=== PATIENT | male | born 1965 | race Caucasian/White ===

== ENCOUNTER 2023-04-04 14:10 | Outpatient (CLI) | payer MEDICAID, SELFPAY ==
--- NOTE | 2023-04-04 14:26 | XR_ITS ---
FINAL REPORT CLINICAL HISTORY: left knee pain COMPARISON: None FINDINGS: Three views of the left knee reveal no evidence of fracture or dislocation. There is severe degenerative change, and severe joint space narrowing. There is angulation of the knee, with multiple loose bodies measuring up to 29 mm present in the suprapatellar bursa. A moderate size joint effusion is present. No localized soft tissue abnormality is seen. IMPRESSION: Severe degenerative change and severe joint space narrowing of the left knee as described. Reviewed, Interpreted and Dictated by Clinton Oglesby III, MD Transcribed by Karen Can Authenticated and . [facility]
== END 2023-04-04 23:59 ==
LOC: RAD 14:18
PROVIDERS: Visit Provider Orthopaedic Surgery
DX: M25.562 Pain in left knee (principal)
CPT/HCPCS: 73562

== ENCOUNTER 2023-04-16 17:20 | Emergency (ER) | payer MEDICAID, SELFPAY ==
[2023-04-16 17:21] VITALS: BP 161/100; PULSE 75; RESP 18; TEMP 37; O2SAT 98; BMI 30.1
--- NOTE | 2023-04-16 17:39 | PC.NURSE ---
DR CALVERT AT BEDSIDE
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
--- NOTE | 2023-04-16 17:48 | PC.NURSE ---
SPOKE WITH DAUGHTER GEE, INFORMED THAT FATHER IS BEING EVALUATED IN ED. UPDATED ON PT'S CONDITION AND POC. DAUGHTER STATES SHE IS 18 Y/O, LIVES IN [place], IS A STUDENT AND CANNOT COME PICK HER FATHER UP HE SAID. STATES SHE SPOKE WITH DEMETRIS (WHEEL ALIGNER) OF [facility] AND MR MCGINNIS CAN COME BACK. DAUGHTER REPORTS PT HAS TBI.
--- NOTE | 2023-04-16 17:56 | PC.NURSE ---
CALLED [facility] TWICE FOR PT TO BE PICKED UP, NO ANSWER
--- NOTE | 2023-04-16 17:58 | PC.NURSE ---
called [facility] for pt transport, they advised they would come get him.
[2023-04-16 18:38] VITALS: BP 158/90; PULSE 80; RESP 18; TEMP 37; O2SAT 99
== END 2023-04-16 18:39 | disposition home or self-care (01) ==
PROVIDERS: Emergency Provider Emergency Medicine
DX: R41.82 Altered mental status, unspecified (principal); F10.929 Alcohol use, unspecified with intoxication, unspecified; Z87.820 Personal history of traumatic brain injury
CPT/HCPCS: 99284

== ENCOUNTER 2023-06-23 19:26 | Emergency (ER) | payer MEDICAID, SELFPAY ==
[2023-06-23 19:26] VITALS: BP 159/83; PULSE 89; RESP 20; TEMP 36.6; O2SAT 100; BMI 30.4
[2023-06-23 19:30] VITALS: BP 152/85; PULSE 88; O2SAT 98
--- NOTE | 2023-06-23 19:43 | ECG_ITS ---
APPROVED REPORT Exam: Resting ECG HR:81 bpm ECG Measurements Heart Rate 81 AXES TN 191 P 67 QRSd 101 QRS 56 QT 392 T 69 QTc 430 Conclusion SINUS RHYTHM NORMAL ECG UNCONFIRMED REPORT Electronically signed by : NIKA ZULUAGA, 06/24/2023 06:30:35
[2023-06-23 20:00] VITALS: BP 150/92; PULSE 92; O2SAT 98
--- NOTE | 2023-06-23 20:24 | XR_ITS ---
PROCEDURE INFORMATION: Exam: XR Chest Exam date and time: 06/23/2023 8:25 PM Age: 58 years old Clinical indication: Other: Chest pain TECHNIQUE: Imaging protocol: Radiologic exam of the chest. Views: 1 view. Total images: 1 COMPARISON: No relevant prior studies available. FINDINGS: Lungs: Unremarkable. No consolidation. No pulmonary vascular congestion or edema. Pleural spaces: Left apical pleural thickening/scarring. No pleural effusion. No pneumothorax. Heart/Mediastinum: Unremarkable. No cardiomegaly. No mediastinal widening or hilar enlargement. Bones/joints: Multiple remote left rib fractures. Remote deformity distal left clavicle with heterotopic ossification along the coracoclavicular ligament. Presumed chronic widening of the left AC joint. Moderate to severe degenerative change right glenohumeral joint. Moderate degenerative changes thoracic spine. IMPRESSION: No radiographically acute cardiopulmonary process.
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
[2023-06-23 20:31] LABS: Basophils # 0.1 K/mm3 (0-0.2); Basophils % 0.5 % (0.1-2.0); Eosinophils % 0.2 % (0.1-12.0); Hematocrit 36.3 % (42.0-52.0); Hemoglobin 11.8 g/dL (14.1-18.0); Lymphocytes # 1.2 K/mm3 (0.7-4.5); Lymphocytes % 8.3 % (10-50); Mean Corpuscular HGB Conc 32.5 g/dL (31.8-35.4); Mean Corpuscular Hemoglobin 29.3 pg (27.0-31.2); Mean Platelet Volume 8.2 fl (7.4-10.4); Monocytes # 0.7 K/mm3 (0.1-1.0); Monocytes % 5.1 % (1.7-9.3); Neutrophils # 12.2 K/mm3 (1.8-7.8); Neutrophils % 85.9 % (37.0-80.0); Platelet Count 308 K/mm3 (142-424); Red Blood Count 4.04 M/mm3 (4.60-6.20); Red Cell Distribution Width 13.7 % (11.5-17.5); White Blood Count 14.2 K/mm3 (4.8-10.8)
[2023-06-23 20:33] LABS: Chloride 100 mmol/L (98-107)
[2023-06-23 20:34] LABS: Potassium 4.3 mmoL/L (3.5-5.1); Sodium 133 mmol/L (136-145)
[2023-06-23] MEDS: ACETAMINOPHEN 1,000MG/100ML VIAL 1000 MG IV (20:34)
[2023-06-23] MEDS: BELLADONNA ALKALOIDS 60 ML ML PO (20:34)
[2023-06-23] MEDS: METHOCARBAMOL 500MG TABLET 1000 MG PO (20:35)
[2023-06-23] MEDS: LIDOCAINE 5% TRANSDERMAL PATCH 1 EACH TP (20:35)
[2023-06-23] MEDS: KETOROLAC 30MG/ML VIAL 30 MG IV (20:35)
[2023-06-23 20:36] LABS: Alanine Aminotransferase 62 U/L (12-78); Albumin Level 3.7 g/dl (3.5-5.0); Albumin/Globulin Ratio 1.2 (1.1-1.8); Alkaline Phosphatase 104 U/L (38-126); Anion Gap 12.3 mEq/L (5-15); Aspartate Amino Transferase 58 U/L (17-59); Blood Urea Nitrogen 18 mg/dl (9-20); Calcium 9.5 mg/dl (8.4-10.2); Carbon Dioxide 25 mmol/L (22.0-30.0); Creatinine Clearance Estimated 172 mL/min (50-200); Estimated Glomerular Filt Rate 138 ml/min (>60); GFR (African American) 167 ML/MIN (>60); Globulin 3.2 g/dL (1.3-3.2); Glucose 170 mg/dl (74-100); Total Protein,Serum 6.9 g/dl (6.3-8.2)
[2023-06-23 20:44] LABS: MANUAL DIFFERENTIAL MANUAL DIFFERENTIAL (MANUAL DIFF)
[2023-06-23 20:56] LABS: Troponin I < 0.01 ng/ml (0.00-0.034)
[2023-06-23 21:36] VITALS: BP 174/77; PULSE 69; O2SAT 97
--- NOTE | 2023-06-23 21:36 | PC.NURSE ---
Pt states pain is better, provided warm blanket, no needs at this time
[2023-06-23 22:01] VITALS: BP 194/172; PULSE 73; RESP 18; O2SAT 96
[2023-06-23 22:10] VITALS: BP 176/74; PULSE 67; RESP 18; TEMP 36.6; O2SAT 98
--- NOTE | 2023-06-23 22:10 | PC.NURSE ---
Spoke with Lore Sanderson mortgage sales manager @ [employer] and she calling [facility] to have someone come get patient
[2023-06-23 22:11] LABS: Lymphocytes % 9 % (10-50); Monocytes % 1 % (2-9); Neutrophils % 90 % (42-76); Platelet Estimate Normal; RBC Morphology Normal; Total Cells Counted 100
--- NOTE | 2023-06-23 22:17 | PC.NURSE ---
Pt placed in wheelchair, waiting for Lore to transport back to [facility]
== END 2023-06-23 22:18 | disposition home or self-care (01) ==
PROVIDERS: Emergency Provider Emergency Medicine; PCP Nurse Practitioner Acute Care
DX: M54.6 Pain in thoracic spine (principal); K21.9 Gastro-esophageal reflux disease without esophagitis; D64.9 Anemia, unspecified; F17.210 Nicotine dependence, cigarettes, uncomplicated
CPT/HCPCS: 71045; 80053; 84484; 85007; 85025; 93005; 96374; 96375; 99284; J0131

== ENCOUNTER 2023-06-26 15:42 | Emergency (ER) | payer MEDICAID, SELFPAY ==
[2023-06-26] VITALS (10 sets, daily range): BP systolic 101–130; BP diastolic 61–81; PULSE 67–87; RESP 18–20; TEMP 36.5–36.8; O2SAT 94–98; BMI 33.0
--- NOTE | 2023-06-26 15:50 | ED_ITS ---
<Statement entered by Miri Whitley DO - 06/26/23 21:45> I was consulted by the SHRUTHI, and we discussed the complexity of the problems being addressed. I approved the treatment and management plan for this patient's care in the emergency department, thus performing a substantive portion of the medical decision making. Miri Whitley DO Discharge Plan Disposition Patient Disposition: Xfer Other Condition: Good Prescriptions Prescriptions: No Action divalproex 500 mg tablet,delayed release (DR/EC) 500 mg PO BID duloxetine 60 mg capsule,delayed release(DR/EC) 60 mg PO DAILY nebivolol 10 mg tablet 10 mg PO DAILY buspirone 7.5 mg tablet 7.5 mg PO BID tramadol 50 mg tablet 50 mg PO DAILY Referrals Follow up/Referrals: Jayme Bro APRN [Primary Care Provider] - See instructions Clinical Impressions Clinical Impression: Generalized pain, Hemorrhage of both adrenal glands, Leukocytosis Stand Alone Forms Stand Alone Forms: Transfer Record - ED Discharge ED Provider: Lenny Amanda General Adult HPI <KEYANA Carroll - Last Filed: 06/26/23 21:46> General Chief complaint: PAIN Stated complaint: fall Time Seen by Provider: 06/26/23 15:50 Mode of Arrival: EMS Source of Information: Patient and EMS Limitations: No Limitations Description of Symptoms (Recalled from ER Triage Doc. by RN): pt presents to ED c/o pain all over. pt states he has chronic pain. pt states he feels like his neck is popping when he turns his head. pt did have knee surgery approx last . denies fever. History of Present Illness HPI narrative: Patient presents from a personal retirement for evaluation of pain all over . Patient is a very poor historian due to apparently a traumatic brain injury in the past. Patient recently had left knee surgery last . Patient denies specifically cardiac type chest pain shortness of breath fever chills hemoptysis hematochezia melena nausea vomiting diarrhea. Patient states that he is having difficulty using the bathroom by which she means on further questioning defecation. Related Data Home Medications Medication Instructions Recorded Confirmed buspirone 7.5 mg tablet 7.5 mg PO BID 04/04/23 04/04/23 divalproex 500 mg tablet,delayed 500 mg PO BID 04/04/23 04/04/23 release duloxetine 60 mg capsule,delayed 60 mg PO DAILY 04/04/23 04/04/23 release nebivolol 10 mg tablet 10 mg PO DAILY 04/04/23 04/04/23 tramadol 50 mg tablet 50 mg PO DAILY 04/04/23 04/04/23 Allergies Allergy/AdvReac Type Severity Reaction Status Date / Time No Known Allergies Allergy Verified 04/04/23 14:46 [facility] <KEYANA Carroll - Last Filed: 06/26/23 21:46> [facility] Disclaimer: The information contained in this section may have been updated after the patient was seen, as this information can be updated by other users. Social History (Updated 04/04/23 @ 14:45 by Almita Mullins MA) Smoking Status: Current every day smoker alcohol intake: never current occupational status: disabled Travel in the last 8 weeks: None <KEYANA Carroll - Last Filed: 06/26/23 21:46> ROS Obtained: Yes Systems reviewed as appropriate & no additional complaints except as documented Physical Exam <KEYANA Carroll - Last Filed: 06/26/23 21:46> General General appearance: alert and in no apparent distress Head Head exam: atraumatic and normal inspection Eye Eye exam: Present normal appearance, PERRL and EOMI ENT ENT exam: Present normal exam, normal oropharynx and mucous membranes moist Neck Neck exam: Present normal inspection, full ROM and trachea midline; Absent lymphadenopathy Chest Chest inspection: Present normal inspection and symmetric chest wall rise; Absent tenderness Respiratory Respiratory exam: Present normal lung sounds bilaterally; Absent respiratory distress, wheezes, stridor or accessory muscle use Cardiovascular Cardiovascular exam: Present regular rate, normal rhythm, normal heart sounds, +S1 and +S2 Abdominal Exam Abdominal exam: Present soft and normal bowel sounds; Absent tenderness, guarding, rebound or rigidity Extremities Exam Extremities exam: Present normal inspection and full ROM; Absent tenderness (Expected postoperative tenderness of the left knee but no evidence of infection fluctuance erythema or edema. He is neurovascularly intact distally.) Back Exam Back exam: Present normal inspection and full ROM Neurological Exam Neurological exam: Present CN II-XII intact and other (Patient is awake and interactive but oriented only to person not time or circumstance) Psychiatric Psychiatric exam: Present normal affect and normal mood Skin Skin exam: Present warm, dry and normal color Medical Decision Making <KEYANA Carroll - Last Filed: 06/26/23 21:46> Medical Records Medical records reviewed: Yes I reviewed the patient's medical records. Vinicius Inquiry Pt receiving controlled substance: No Vital Signs: 06/26/23 15:42 06/26/23 16:00 06/26/23 16:13 Temperature 97.7 F Temperature Source Oral Pulse Rate 80 85 Pulse Rate [Right Radial] 86 Respiratory Rate 20 18 Blood Pressure 119/81 112/78 Blood Pressure [Right Arm] 109/81 L Blood Pressure Mean Blood Pressure Mean [Right Arm] 90 Blood Pressure Source Automatic Cuff Blood Pressure Source [Right Arm] Automatic Cuff Blood Pressure Position Sitting Blood Pressure Position [Right Arm] Sitting 02 Sat by Pulse Oximetry 94 L 98 97 Oxygen Delivery Method Room Air 06/26/23 16:14 06/26/23 16:30 06/26/23 16:40 Temperature Temperature Source Pulse Rate 87 81 81 Pulse Rate [Right Radial] Respiratory Rate 18 Blood Pressure 112/78 104/68 L 104/68 L Blood Pressure [Right Arm] Blood Pressure Mean 84 78 Blood Pressure Mean [Right Arm] Blood Pressure Source Automatic Cuff Blood Pressure Source [Right Arm] Blood Pressure Position Sitting Blood Pressure Position [Right Arm] 02 Sat by Pulse Oximetry 95 98 97 Oxygen Delivery Method 06/26/23 17:00 06/26/23 17:37 06/26/23 18:33 Temperature Temperature Source Pulse Rate 72 75 79 Pulse Rate [Right Radial] Respiratory Rate 18 Blood Pressure 118/68 130/68 115/79 Blood Pressure [Right Arm] Blood Pressure Mean 88 93 Blood Pressure Mean [Right Arm] Blood Pressure Source Blood Pressure Source [Right Arm] Blood Pressure Position Blood Pressure Position [Right Arm] 02 Sat by Pulse Oximetry 95 96 97 Oxygen Delivery Method Lab Data Lab results reviewed: Yes I reviewed the patient's lab results. Lab Results 06/26/23 15:50: WBC 13.6 H, RBC 4.41 L, Hgb 13.2 L, Hct 39.2 L, MCV 88.8, MCH 29.9, MCHC 33.7, RDW 13.8, Plt Count 347, MPV 8.3, Neut % (Auto) 73.9, Lymph % (Auto) 18.1, [place] % (Auto) 4.2, Eos % (Auto) 2.9, Baso % (Auto) 1.0, Neut # (Auto) 10.0 H, Lymph # (Auto) 2.5, [place] # (Auto) 0.6, Eos # (Auto) 0.4, Baso # (Auto) 0.1, ESR 23 H, Sodium 128 L, Potassium 5.2 H D, Chloride 97 L, Carbon Dioxide 24, Anion Gap 12.2, BUN 27 H D, Creatinine 1.00 D, Estimated Creat Clear 126, Estimated GFR 77, Est GFR ( Amer) 93 D, Glucose 127 H, Calcium 9.3, Total Bilirubin 1.5 H, AST 81 H D, ALT 58, Alkaline Phosphatase 124, C-Reactive Protein 221.2 H, Total Protein 7.4, Albumin 3.9, Globulin 3.5 H, Albumin/Globulin Ratio 1.1 06/26/23 16:11: SARS-CoV-2 (PCR) Not detected, Influenza A Untype (PCR) Not detected, Influenza Type B (PCR) Not detected 06/26/23 18:33: Urine Color [place], Urine Appearance Clear, Urine pH 6.5, Ur Specific [place] <= 1.005, Urine Protein Negative, Urine Glucose (UA) Negative, Urine Ketones Negative, Urine Blood Negative, Urine Nitrate Negative, Urine Bilirubin Negative, Urine Urobilinogen 0.2, Ur Leukocyte Esterase Negative, Urine RBC None, Urine WBC None, Ur Squamous Epith Cells None, Urine Bacteria None 06/26/23 19:10: PT 11.4, INR 1.06, APTT 39.9 H, Lactate 1.1 06/26/23 15:50 06/26/23 15:50 Orders (Tests/Meds): ED MEDICATIONS Generic Name Dose Route Start Last Admin Trade Name Freq PRN Reason Stop Dose Admin Piperacillin Sod/Tazobactam 50 mls @ 100 mls/hr 06/26/23 19:30 06/26/23 19:47 Sod 3.375 gm/ Sodium Chloride IV 07/06/23 19:29 100 mls/hr Q6H JAISON Administration Miscellaneous 1 each 06/26/23 19:30 06/26/23 19:29 Vancomycin Consult Request NOTAPPLIC 07/26/23 19:29 1 each CONSULT PHARMACY JAISON Administration Discontinued Medications Generic Name Dose Route Start Last Admin Trade Name Freq PRN Reason Stop Dose Admin Acetaminophen 1,000 mg 06/26/23 15:58 06/26/23 16:04 Acetaminophen 1,000mg/100ml Vial IV 06/26/23 15:59 1,000 mg ONCE ONE Administration Lactated Ringer's 1,000 mls @ 999 mls/hr 06/26/23 16:24 06/26/23 16:27 Lactated Ringer's 1000 Ml Bag IV 06/26/23 17:24 999 mls/hr .Q1H1M ONE Administration Lactated Ringer's 500 mls @ 999 mls/hr 06/26/23 17:41 06/26/23 17:42 Lactated Ringer's 1000 Ml Bag IV 06/26/23 18:11 999 mls/hr .Q31M ONE Administration Vancomycin HCl 2,500 mg/ 250 mls @ 125 mls/hr 06/26/23 19:45 06/26/23 19:53 Sodium Chloride IV 06/26/23 21:44 125 mls/hr ONCE ONE Administration Iopamidol 75 ml 06/26/23 17:15 06/26/23 17:22 Iopamidol-370 (76%);100ml Bottle IV 06/26/23 17:16 75 ml ONCE ONE Administration Iopamidol 50 ml 06/26/23 17:23 06/26/23 17:25 Iopamidol-370 (76%);100ml Bottle IV 06/26/23 17:24 50 ml ONCE ONE Administration Ketorolac Tromethamine 15 mg 06/26/23 15:58 06/26/23 16:04 Ketorolac 30mg/Ml Vial IV 06/26/23 15:59 15 mg ONCE ONE Administration Sodium Chloride 50 ml 06/26/23 17:15 06/26/23 17:22 0.9 % Sodium Chloride 50 Ml Vial IV 06/26/23 17:16 50 ml ONCE ONE Administration Sodium Chloride 10 ml 06/26/23 17:15 06/26/23 17:22 Sodium Chloride 0.9% 10ml Syr (Rad Only) IV 06/26/23 17:16 10 ml ONCE ONE Administration ORDERS Category Date Time Status CT abdomen pelvis w con Stat Cat Scan 06/26/23 17:[address] angio chest PE protocol Stat Cat Scan 06/26/23 17:[address] head/brain wo con Stat Cat Scan 06/26/23 16:[address] knee LT w con Stat Cat Scan 06/26/23 16:59 Completed Chest XR -- portable [XR chest portable] Stat Exams 06/26/23 16:01 Completed KUB (single view) [XR KUB] Stat Exams 06/26/23 15:58 Completed XR knee LT 2V Stat Exams 06/26/23 16:03 Completed Activated Partial Thrombo Time Stat Lab 06/26/23 19:10 Completed C-Reactive Protein Stat Lab 06/26/23 15:50 Completed CMP [Comprehensive Metabolic Panel] Stat Lab 06/26/23 15:50 Completed Complete Blood Count Auto Diff Stat Lab 06/26/23 15:50 Completed Erythrocyte Sedimentation Rate Stat Lab 06/26/23 15:50 Completed Lactic Acid Stat Lab 06/26/23 19:10 Completed Prothrombin Time INR Stat Lab 06/26/23 19:10 Completed Rapid PCR Covid and Flu A/B Stat Lab 06/26/23 16:11 Completed UA [Urinalysis and Microscopic] Stat Lab 06/26/23 18:33 Completed Blood Culture Stat Micro 06/26/23 19:37 Received Urine Culture Stat Micro 06/26/23 18:33 Received CA venous doppler LE LT Stat Y 06/26/23 15:57 Completed Medical Decision Narrative: Today herIn summary patient is a 58-year-old male who presents to the emergency department for evaluation of pain all over. Patient is hemodynamically stable satting at 94% on room air upon arrival, febrile. Physical exam is only remarkable for obvious postsurgical changes to the left knee with no evidence of drainage erythema edema fluctuance effusion. Patient is neurovascularly intact distally left lower extremity. Differential diagnosis includes postoperative pneumonia, urinary tract infection, constipation, DVT, viral or bacterial infection etc. Initial workup will be conducted with hematologic labs and CT scan of the brain chest abdomen pelvis and left lower extremity, plain film x- rays respiratory swabs. Initial interventions include Toradol and Tylenol. Initial workup reviewed by me shows an elevated white count with a left shift, hyponatremia, possible volume depletion given laboratory results, bland urinalysis, and my informal interpretation of his imaging shows no acute intracranial process other than his chronic encephalomalacia on CT of the head, no acute thrombus on CT of the chest, CT of the abdomen pelvis shows questionable bilateral fat stranding around the adrenal glands, and CT of the knee does not show any acute processes and does show changes consistent with acute surgical intervention the radiologist read pending. Given the radiographic findings which reportedly were read as suspicious for acute spontaneous adrenal hemorrhage I spoke with [facility] Dr Santiago for consultation on patient management. Given that spontaneous adrenal hemorrhage is possible and acute sepsis, patient is freshly postop for a left total knee, and patient does have an elevated white count with no identifiable source he recommended that we seek admission however the [facility] is on divert except for emergent surgical intervention. We then spoke to Dr. Gonzalez of orthopedic surgery here regarding patient management. Unfortunately Dr. Gonzalez is unavailable due to being out of town. I have tried to reach [facility] in [place] where the patient's surgical procedure took place as the knee could be a potential source speak to his surgeon or the surgeon on-call. Fortunately the surgeon accepted to the hospitalist, antithrombotic coverage. Potential surgical intervention for bilateral. Patient spoke to [facility] and patient was graciously accepted by Dr. Badillo. DO Gutierrez: Patient is a very poor poor historian given history of TBI, but he presents with chest pain, abdominal pain, and left knee pain after recent knee replacement. Patient found to have leukocytosis, but vitals are reassuring with no fever or tachycardia. He has a swollen and warm left knee, but this is somewhat to be expected in the postoperative period. He also has a suprapatellar effusion on CT scan of the knee, which is normal the postoperative period but cannot exclude infection given rim enhancement and gas focus per radiology. 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 We had interacted discussions with who advised admission and observation however they are currently on divert. <Mrii Whitley DO - Last Filed: 06/26/23 22:44> Vital Signs: 06/26/23 15:42 06/26/23 16:00 06/26/23 16:13 Temperature 97.7 F Temperature Source Oral Pulse Rate 80 85 Pulse Rate [Right Radial] 86 Respiratory Rate 20 18 Blood Pressure 119/81 112/78 Blood Pressure [Right Arm] 109/81 L Blood Pressure Mean Blood Pressure Mean [Right Arm] 90 Blood Pressure Source Automatic Cuff Blood Pressure Source [Right Arm] Automatic Cuff Blood Pressure Position Sitting Blood Pressure Position [Right Arm] Sitting 02 Sat by Pulse Oximetry 94 L 98 97 Oxygen Delivery Method Room Air 06/26/23 16:14 06/26/23 16:30 06/26/23 16:40 Temperature Temperature Source Pulse Rate 87 81 81 Pulse Rate [Right Radial] Respiratory Rate 18 Blood Pressure 112/78 104/68 L 104/68 L Blood Pressure [Right Arm] Blood Pressure Mean 84 78 Blood Pressure Mean [Right Arm] Blood Pressure Source Automatic Cuff Blood Pressure Source [Right Arm] Blood Pressure Position Sitting Blood Pressure Position [Right Arm] 02 Sat by Pulse Oximetry 95 98 97 Oxygen Delivery Method 06/26/23 17:00 06/26/23 17:37 06/26/23 18:33 Temperature Temperature Source Pulse Rate 72 75 79 Pulse Rate [Right Radial] Respiratory Rate 18 Blood Pressure 118/68 130/68 115/79 Blood Pressure [Right Arm] Blood Pressure Mean 88 93 Blood Pressure Mean [Right Arm] Blood Pressure Source Blood Pressure Source [Right Arm] Blood Pressure Position Blood Pressure Position [Right Arm] 02 Sat by Pulse Oximetry 95 96 97 Oxygen Delivery Method Lab Data Lab Results 06/26/23 15:50: WBC 13.6 H, RBC 4.41 L, Hgb 13.2 L, Hct 39.2 L, MCV 88.8, MCH 29.9, MCHC 33.7, RDW 13.8, Plt Count 347, MPV 8.3, Neut % (Auto) 73.9, Lymph % (Auto) 18.1, [place] % (Auto) 4.2, Eos % (Auto) 2.9, Baso % (Auto) 1.0, Neut # (Auto) 10.0 H, Lymph # (Auto) 2.5, [place] # (Auto) 0.6, Eos # (Auto) 0.4, Baso # (Auto) 0.1, ESR 23 H, Sodium 128 L, Potassium 5.2 H D, Chloride 97 L, Carbon Dioxide 24, Anion Gap 12.2, BUN 27 H D, Creatinine 1.00 D, Estimated Creat Clear 126, Estimated GFR 77, Est GFR ( Amer) 93 D, Glucose 127 H, Calcium 9.3, Total Bilirubin 1.5 H, AST 81 H D, ALT 58, Alkaline Phosphatase 124, C-Reactive Protein 221.2 H, Total Protein 7.4, Albumin 3.9, Globulin 3.5 H, Albumin/Globulin Ratio 1.1 04/03/24 16:11: SARS-CoV-2 (PCR) Not detected, Influenza A Untype (PCR) Not detected, Influenza Type B (PCR) Not detected 06/26/23 18:33: Urine Color [place], Urine Appearance Clear, Urine pH 6.5, Ur Specific [place] <= 1.005, Urine Protein Negative, Urine Glucose (UA) Negative, Urine Ketones Negative, Urine Blood Negative, Urine Nitrate Negative, Urine Bilirubin Negative, Urine Urobilinogen 0.2, Ur Leukocyte Esterase Negative, Urine RBC None, Urine WBC None, Ur Squamous Epith Cells None, Urine Bacteria None 06/26/23 19:10: PT 11.4, INR 1.06, APTT 39.9 H, Lactate 1.1 Orders (Tests/Meds): ED MEDICATIONS Generic Name Dose Route Start Last Admin Trade Name Freq PRN Reason Stop Dose Admin Piperacillin Sod/Tazobactam 50 mls @ 100 mls/hr 06/26/23 19:30 06/26/23 19:47 Sod 3.375 gm/ Sodium Chloride IV 07/06/23 19:29 100 mls/hr Q6H JAISON Administration Miscellaneous 1 each 06/26/23 19:30 06/26/23 19:29 Vancomycin Consult Request NOTAPPLIC 07/26/23 19:29 1 each CONSULT PHARMACY JAISON Administration Discontinued Medications Generic Name Dose Route Start Last Admin Trade Name Freq PRN Reason Stop Dose Admin Acetaminophen 1,000 mg 06/26/23 15:58 06/26/23 16:04 Acetaminophen 1,000mg/100ml Vial IV 06/26/23 15:59 1,000 mg ONCE ONE Administration Lactated Ringer's 1,000 mls @ 999 mls/hr 06/26/23 16:24 06/26/23 16:27 Lactated Ringer's 1000 Ml Bag IV 06/26/23 17:24 999 mls/hr .Q1H1M ONE Administration Lactated Ringer's 500 mls @ 999 mls/hr 06/26/23 17:41 06/26/23 17:42 Lactated Ringer's 1000 Ml Bag IV 06/26/23 18:11 999 mls/hr .Q31M ONE Administration Vancomycin HCl 2,500 mg/ 250 mls @ 125 mls/hr 06/26/23 19:45 06/26/23 19:53 Sodium Chloride IV 06/26/23 21:44 125 mls/hr ONCE ONE Administration Iopamidol 75 ml 06/26/23 17:15 06/26/23 17:22 Iopamidol-370 (76%);100ml Bottle IV 06/26/23 17:16 75 ml ONCE ONE Administration Iopamidol 50 ml 06/26/23 17:23 06/26/23 17:25 Iopamidol-370 (76%);100ml Bottle IV 06/26/23 17:24 50 ml ONCE ONE Administration Ketorolac Tromethamine 15 mg 06/26/23 15:58 06/26/23 16:04 Ketorolac 30mg/Ml Vial IV 06/26/23 15:59 15 mg ONCE ONE Administration Sodium Chloride 50 ml 06/26/23 17:15 06/26/23 17:22 0.9 % Sodium Chloride 50 Ml Vial IV 06/26/23 17:16 50 ml ONCE ONE Administration Sodium Chloride 10 ml 06/26/23 17:15 06/26/23 17:22 Sodium Chloride 0.9% 10ml Syr (Rad Only) IV 06/26/23 17:16 10 ml ONCE ONE Administration ORDERS Category Date Time Status CT abdomen pelvis w con Stat Cat Scan 06/26/23 17:[address] angio chest PE protocol Stat Cat Scan 06/26/23 17:[address] head/brain wo con Stat Cat Scan 06/26/23 16:[address] knee LT w con Stat Cat Scan 06/26/23 16:59 Completed Chest XR -- portable [XR chest portable] Stat Exams 06/26/23 16:01 Completed KUB (single view) [XR KUB] Stat Exams 06/26/23 15:58 Completed XR knee LT 2V Stat Exams 06/26/23 16:03 Completed Activated Partial Thrombo Time Stat Lab 06/26/23 19:10 Completed C-Reactive Protein Stat Lab 06/26/23 15:50 Completed CMP [Comprehensive Metabolic Panel] Stat Lab 06/26/23 15:50 Completed Complete Blood Count Auto Diff Stat Lab 06/26/23 15:50 Completed Erythrocyte Sedimentation Rate Stat Lab 06/26/23 15:50 Completed Lactic Acid Stat Lab 06/26/23 19:10 Completed Prothrombin Time INR Stat Lab 06/26/23 19:10 Completed Rapid PCR Covid and Flu A/B Stat Lab 06/26/23 16:11 Completed UA [Urinalysis and Microscopic] Stat Lab 06/26/23 18:33 Completed Blood Culture Stat Micro 06/26/23 19:37 Received Urine Culture Stat Micro 06/26/23 18:33 Received CA venous doppler LE LT Stat Y 06/26/23 15:57 Completed Medical Decision Narrative: In summary patient is a 58-year-old male who presents to the emergency department for evaluation of pain all over. Patient is hemodynamically stable satting at 94% on room air upon arrival, febrile. Physical exam is only remarkable for obvious postsurgical changes to the left knee with no evidence of drainage erythema edema fluctuance effusion. Patient is neurovascularly intact distally left lower extremity. Differential diagnosis includes postoperative pneumonia, urinary tract infection, constipation, DVT, viral or bacterial infection etc. Initial workup will be conducted with hematologic labs and CT scan of the brain chest abdomen pelvis and left lower extremity, plain film x- rays respiratory swabs. Initial interventions include Toradol and Tylenol. Initial workup reviewed by me shows an elevated white count with a left shift, hyponatremia, possible volume depletion given laboratory results, bland urinalysis, and my informal interpretation of his imaging shows no acute intracranial process other than his chronic encephalomalacia on CT of the head, no acute thrombus on CT of the chest, CT of the abdomen pelvis shows questionable bilateral fat stranding around the adrenal glands, and CT of the knee does not show any acute processes and does show changes consistent with acute surgical intervention the radiologist read pending. Given the radiographic findings which reportedly were read as suspicious for acute spontaneous adrenal hemorrhage I spoke with [facility] Dr Santiago for consultation on patient management. Given that spontaneous adrenal hemorrhage is possible and acute sepsis, patient is freshly postop for a left total knee, and patient does have an elevated white count with no identifiable source he recommended that we seek admission however the [facility] is on divert except for emergent surgical intervention. We then spoke to Dr. Gonzalez of orthopedic surgery here regarding patient management. Unfortunately Dr. Gonzalez is unavailable due to being out of town. I have tried to reach [facility] in [place] where the patient's surgical procedure took place as the knee could be a potential source speak to his surgeon or the surgeon on-call. DO Gutierrez: Patient is a very poor poor historian given history of TBI, but he presents with chest pain, abdominal pain, and left knee pain after recent knee replacement. Patient found to have leukocytosis, but vitals are reassuring with no fever or tachycardia. He has a swollen and warm left knee, but this is somewhat to be expected in the postoperative period. He also has a suprapatellar effusion on CT scan of the knee, which is normal the postoperative period but cannot exclude infection given rim enhancement and gas focus per radiology. 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 We had interactive discussions with who advised no acute intervention with regards to the bilateral adrenal hemorrhages aside from sepsis workup given that this is often a sign of sepsis. Ultimately, we do not have orthopedics on-call to evaluate the patient's need to ensure that this is not a source of sepsis, so I had and after discussion with the surgeon direct support professional at [facility] Dr. Morales where surgery was done. He advised that they would be happy to accept the patient, but hospitalist did not except given that the patient has these bilateral adrenal hemorrhages. Ultimately, we had an interactive discussion with Mabel, nurse practitioner at [facility] who accepted the patient on behalf of Dr. Watson. Patient transferred in stable condition. Critical Care <KEYANA Carroll - Last Filed: 06/26/23 21:46> Critical Care Time Critical Care Time: No
--- NOTE | 2023-06-26 15:57 | CA_ITS ---
FINAL REPORT TECHNIQUE: Color Doppler, duplex Doppler and compression sonography of the left lower extremity deep venous systems was performed. CLINICAL HISTORY: Postop, left knee pain FINDINGS: There is no evidence of deep venous thrombosis from the level of the groin to the calf. The veins are patent and compressible. IMPRESSION: No evidence of deep venous thrombosis left lower extremity. Authenticated and ERN
--- NOTE | 2023-06-26 15:58 | XR_ITS ---
PROCEDURE INFORMATION: Exam: XR Abdomen Exam date and time: 06/26/2023 4:56 PM Age: 58 years old Clinical indication: Abdominal pain TECHNIQUE: Imaging protocol: Radiologic exam of the abdomen. Views: Frontal supine view of the abdomen. 1 View. COMPARISON: CR XR CHEST PORTABLE 06/23/2023 8:25 PM FINDINGS: Gastrointestinal tract: Normal. No bowel dilation. Bones/joints: Unremarkable. IMPRESSION: No acute findings.
[2023-06-26 16:01] LABS: Basophils # 0.1 K/mm3 (0-0.2); Eosinophils # 0.4 K/mm3 (0.0-0.4); Eosinophils % 2.9 % (0.1-12.0); Hematocrit 39.2 % (42.0-52.0); Hemoglobin 13.2 g/dL (14.1-18.0); Lymphocytes # 2.5 K/mm3 (0.7-4.5); Lymphocytes % 18.1 % (10-50); Mean Corpuscular HGB Conc 33.7 g/dL (31.8-35.4); Mean Corpuscular Hemoglobin 29.9 pg (27.0-31.2); Mean Corpuscular Volume 88.8 fl (80-94); Mean Platelet Volume 8.3 fl (7.4-10.4); Monocytes # 0.6 K/mm3 (0.1-1.0); Monocytes % 4.2 % (1.7-9.3); Neutrophils % 73.9 % (37.0-80.0); Platelet Count 347 K/mm3 (142-424); Red Blood Count 4.41 M/mm3 (4.60-6.20); Red Cell Distribution Width 13.8 % (11.5-17.5); White Blood Count 13.6 K/mm3 (4.8-10.8)
--- NOTE | 2023-06-26 16:01 | XR_ITS ---
PROCEDURE INFORMATION: Exam: XR Chest Exam date and time: 06/26/2023 4:57 PM Age: 58 years old Clinical indication: Sternal or substernal pain; Additional info: Myalgias, postop left knee TECHNIQUE: Imaging protocol: Radiologic exam of the chest. Views: 1 view. COMPARISON: CR XR CHEST PORTABLE 06/23/2023 8:25 PM FINDINGS: Lungs: Mild left basilar atelectasis with interval increase. Lungs otherwise clear. Pleural spaces: Unremarkable. No pleural effusion. No pneumothorax. Heart/Mediastinum: Unremarkable. No cardiomegaly. Bones/joints: Unremarkable. IMPRESSION: Left basilar atelectasis. No other acute findings.
--- NOTE | 2023-06-26 16:03 | XR_ITS ---
PROCEDURE INFORMATION: Exam: XR Left Knee Exam date and time: 06/26/2023 4:58 PM Age: 58 years old Clinical indication: Pain; Knee; Left; Prior surgery; Surgery date: 3-7 days post-operative; Surgery type: Replacement approx last ; Additional info: Increasing pain after replacement TECHNIQUE: Imaging protocol: Radiologic exam of the left knee. Views: 1 or 2 views. COMPARISON: CR XR KNEE LT 3V 04/04/2023 2:28 PM FINDINGS: Bones/joints: Interval left total knee arthroplasty with satisfactory position of the orthopedic hardware. No acute bony abnormality. Soft tissues: Normal. IMPRESSION: Postop left knee.
[2023-06-26] MEDS: ACETAMINOPHEN 1,000MG/100ML VIAL 1000 MG IV (16:04)
[2023-06-26] MEDS: KETOROLAC 30MG/ML VIAL 15 MG IV (16:04)
[2023-06-26 16:08] LABS: Chloride 97 mmol/L (98-107); Potassium 5.2 mmoL/L (3.5-5.1); Sodium 128 mmol/L (136-145)
--- NOTE | 2023-06-26 16:08 | PC.NURSE ---
at bedside to obtain doppler
[2023-06-26 16:11] LABS: Alanine Aminotransferase 58 U/L (12-78); Albumin Level 3.9 g/dl (3.5-5.0); Albumin/Globulin Ratio 1.1 (1.1-1.8); Alkaline Phosphatase 124 U/L (38-126); Anion Gap 12.2 mEq/L (5-15); Aspartate Amino Transferase 81 U/L (17-59); Bilirubin,Total 1.5 mg/dl (0.2-1.3); Blood Urea Nitrogen 27 mg/dl (9-20); Calcium 9.3 mg/dl (8.4-10.2); Carbon Dioxide 24 mmol/L (22.0-30.0); Creatinine Clearance Estimated 126 mL/min (50-200); Estimated Glomerular Filt Rate 77 ml/min (>60); GFR (African American) 93 ML/MIN (>60); Globulin 3.5 g/dL (1.3-3.2); Glucose 127 mg/dl (74-100); Total Protein,Serum 7.4 g/dl (6.3-8.2)
[2023-06-26 16:15] LABS: Coronavirus 19, PCR Not Detected (NotDetected); Influenza A, PCR Not Detected (NotDetected); Influenza B, PCR Not Detected (NotDetected)
--- NOTE | 2023-06-26 16:21 | PC.NURSE ---
rounded on pt, call light within reach and does not need anything at this time.
[2023-06-26] MEDS: LACTATED RINGERS 1000ML 1,000 ML 999 ML IV (16:27)
--- NOTE | 2023-06-26 16:27 | PC.NURSE ---
doppler obtained at this time.
[2023-06-26 16:44] LABS: C-Reactive Protein 221.2 mg/L (0-4)
[2023-06-26 16:50] LABS: Erythrocyte Sedimentation Rate 23 mm/hr (0-20)
--- NOTE | 2023-06-26 16:59 | CT_ITS ---
PROCEDURE INFORMATION: Exam: CT Left Lower Extremity With Contrast, Knee Exam date and time: 06/26/2023 5:25 PM Age: 58 years old Clinical indication: Other: AMS; Additional info: Altered mental status, postoperative knee replacem TECHNIQUE: Imaging protocol: CT of the left lower extremity with intravenous contrast was performed. Exam focused on the knee. Radiation optimization: All CT scans at this facility use at least one of these dose optimization techniques: automated exposure control; mA and/or kV adjustment per patient size (includes targeted exams where dose is matched to clinical indication); or iterative reconstruction. Contrast material: ISOVUE; Contrast volume: 50 ml; Contrast route: IV; COMPARISON: CR XR KNEE LT 2V 06/26/2023 4:58 PM FINDINGS: Bones/joints: Left total knee arthroplasty is noted with intact appearing hardware. No evidence of loosening. A large suprapatellar joint effusion is identified with associated enhancement of the synovial lining. Tiny focus of air noted within the effusion. The density of the effusion is predominantly fluid dense although a small area of mildly increased density within the effusion medially suggesting a component of hemorrhage. Soft tissues: Normal. IMPRESSION: 1. Left knee arthroplasty. 2. Large suprapatellar joint effusion with marginal synovial enhancement and a tiny focus of air within the fluid. Findings may be noninfected effusion with associated inflammatory synovitis. The possibility of infected septic joint effusion also possible given the tiny focus of air within the effusion in the synovial enhancement.
--- NOTE | 2023-06-26 16:59 | CT_ITS ---
PROCEDURE INFORMATION: Exam: CT Head Without Contrast Exam date and time: 06/26/2023 5:15 PM Age: 58 years old Clinical indication: Altered mental status/memory loss TECHNIQUE: Imaging protocol: Computed tomography of the head without contrast. Radiation optimization: All CT scans at this facility use at least one of these dose optimization techniques: automated exposure control; mA and/or kV adjustment per patient size (includes targeted exams where dose is matched to clinical indication); or iterative reconstruction. COMPARISON: No relevant prior studies available. FINDINGS: Brain: Large areas of chronic encephalomalacia and gliosis are present in the bilateral temporal lobes. Smaller areas of encephalomalacia are noted in the right frontal lobe. There is no acute intracranial hemorrhage, mass effect, or midline shift. Mild cerebral and cerebellar substance loss is noted. Cerebral ventricles: No hydrocephalus. Paranasal sinuses: There is no acute sinusitis. Mastoid air cells: Visualized mastoid air cells are well aerated. Orbital cavities: The visualized orbits appear unremarkable. Bones/joints: No acute fracture. Soft tissues: Unremarkable. IMPRESSION: 1. No acute intracranial abnormality. 2. Chronic findings as discussed above.
--- NOTE | 2023-06-26 17:00 | CT_ITS ---
PROCEDURE INFORMATION: Exam: CTA Chest With Contrast Exam date and time: 06/26/2023 5:20 PM Age: 58 years old Clinical indication: Other: AMS; Additional info: Acute chest pain, altered mental status TECHNIQUE: Imaging protocol: Computed tomographic angiography of the chest with contrast. Exam focused on the arteries. 3D rendering (Not supervised by radiologist): MIP and/or 3D reconstructed images were created by the technologist. Radiation optimization: All CT scans at this facility use at least one of these dose optimization techniques: automated exposure control; mA and/or kV adjustment per patient size (includes targeted exams where dose is matched to clinical indication); or iterative reconstruction. Contrast material: ISOVUE 370; Contrast volume: 75 ml; Contrast route: INTRAVENOUS (IV); COMPARISON: CR XR CHEST PORTABLE 06/26/2023 4:57 PM FINDINGS: Pulmonary arteries: Normal. No pulmonary emboli. Aorta: Unremarkable. No aortic aneurysm. No aortic dissection. Lungs: Bilateral lower lobe and inferior lingular parenchymal bands compatible with fibro atelectatic changes. Occasional calcified nodule compatible with old granulomatous disease. Lung saez otherwise clear. Pleural spaces: Unremarkable. No pneumothorax. No pleural effusion. Heart: Unremarkable. No cardiomegaly. No pericardial effusion. Lymph nodes: Unremarkable. No enlarged lymph nodes. Bones/joints: Multiple old healed left rib fractures.Bony structures intact. No suspicious lytic or blastic lesions seen. Soft tissues: Unremarkable. IMPRESSION: No evident PE. Bilateral fibro atelectatic changes. No other acute findings.
--- NOTE | 2023-06-26 17:00 | CT_ITS ---
PROCEDURE INFORMATION: Exam: CT Abdomen And Pelvis With Contrast Exam date and time: 06/26/2023 5:20 PM Age: 58 years old Clinical indication: Abdominal pain; Additional info: Acute abdominal pain TECHNIQUE: Imaging protocol: Computed tomography of the abdomen and pelvis with contrast. Radiation optimization: All CT scans at this facility use at least one of these dose optimization techniques: automated exposure control; mA and/or kV adjustment per patient size (includes targeted exams where dose is matched to clinical indication); or iterative reconstruction. Contrast material: ISOVUE; Contrast volume: 75 ml; Contrast route: IV; COMPARISON: CR XR KUB 06/26/2023 4:56 PM FINDINGS: Lungs: Refer to CT chest for lung bases. Liver: Fatty liver changes with associated hepatomegaly measuring 17 cm. Liver otherwise unremarkable. Gallbladder and bile ducts: Normal. No calcified stones. No ductal dilation. Pancreas: Normal. No ductal dilation. Spleen: Normal. No splenomegaly. Adrenal glands: Bilateral adrenal masses are noted measuring 3.8 cm on the right and 3.5 cm on the left. The density of the right adrenal is 41 in the left adrenal is 53. Adjacent mild stranding of the fat noted around both adrenal glands as well. Kidneys and ureters: Normal. No hydronephrosis. Stomach and bowel: Unremarkable. No obstruction. No mucosal thickening. Appendix: Appendix is normal. No evidence of appendicitis. Intraperitoneal space: Unremarkable. No free air. No significant fluid collection. Vasculature: Unremarkable. No abdominal aortic aneurysm. Lymph nodes: Unremarkable. No enlarged lymph nodes. Urinary bladder: Unremarkable as visualized. Reproductive: Unremarkable as visualized. 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 Bony structures intact. No suspicious lytic or blastic lesions seen. Soft tissues: Unremarkable. IMPRESSION: 1. Bilateral adrenal masses or enlargement with associated adjacent periadrenal fat stranding. Favor an acute adrenal process given the adjacent fat stranding such as spontaneous adrenal hemorrhages in the proper clinical setting. The possibility of developing adrenal masses related to tumor can not be totally excluded. Additionally the hemorrhage could also be secondary to hemorrhagic masses among other etiologies. Advise clinical assessment and follow-up. Consider follow-up CT or MR in approximately 3 months to exclude underlying mass. 2. Additional nonemergent findings as above.
--- NOTE | 2023-06-26 17:04 | PC.NURSE ---
pt going to radiology.
--- NOTE | 2023-06-26 17:14 | PC.NURSE ---
pt attempted to void in urinal, unable to at this time.
[2023-06-26] MEDS: IOPAMIDOL-370 (76%);100ML BOTTLE 75 ML IV (17:22)
[2023-06-26] MEDS: 0.9 % SODIUM CHLORIDE 50 ML VIAL IV (17:22)
[2023-06-26] MEDS: SODIUM CHLORIDE 0.9% 10ML SYR (RAD ONLY) 10 ML IV (17:22)
[2023-06-26] MEDS: IOPAMIDOL-370 (76%);100ML BOTTLE 50 ML IV (17:25)
--- NOTE | 2023-06-26 17:36 | PC.NURSE ---
called and spoke with pt's daughter regarding obtaining hx of where pt's surgery was and mentation status. daughter states pt's surgery was performed at [facility].
[2023-06-26] MEDS: LACTATED RINGERS 1000ML 500 ML 999 ML IV (17:42)
--- NOTE | 2023-06-26 17:57 | PC.NURSE ---
rounded on pt, nurse at bedside and does not need anything at this time.
[2023-06-26 18:38] LABS: Microscopic, Urine URINE MICROSCOPIC (MICROSCOPIC)
[2023-06-26 18:42] LABS: Appearance,Urine CLEAR (Clear); Bilirubin,Urine Negative (Negative); Blood, Urine Negative (Negative); Color,Urine ORANGE (Yellow); Glucose,Urine (UA) Negative (Negative); Ketones,Urine Negative (Negative); Leukocyte Esterase,Urine Negative (Negative); Nitrate,Urine Negative (Negative); PH,Urine 6.5 (5.0-8.5); Protein,Urine Negative (Negative); Specific Gravity, Urine <= 1.005 (1.005-1.030); Urobilinogen,Urine 0.2 EU/dl (0.2)
--- NOTE | 2023-06-26 18:52 | PC.NURSE ---
spoke with transfer center per dr. Whitley to speak to general surgery.
--- NOTE | 2023-06-26 18:56 | PC.NURSE ---
Fabio Kebede PA-C [facility]
--- NOTE | 2023-06-26 19:10 | PC.NURSE ---
report given to oncoming shift.
[2023-06-26] MEDS: VANCOMYCIN CONSULT REQUEST 1 EACH NOTAPPLIC (19:29)
[2023-06-26 19:38] LABS: Lactic Acid 1.1 mmol/L (0.7-2.1)
[2023-06-26 19:40] LABS: Activated Partial Thrombo Time 39.9 seconds (22.8-30.6); INR 1.06 (0.9-1.1); Prothrombin Time 11.4 seconds (10.1-12.5)
[2023-06-26] MEDS: PIPERCILLIN/TAZO 3.375 GM in 0.9 % SODIUM CHLORIDE 50 ML IV (19:47)
--- NOTE | 2023-06-26 19:50 | PC.NURSE ---
Dr. Whitley speaking to Dr. Morales with [facility]
--- NOTE | 2023-06-26 19:52 | PC.NURSE ---
Dr. Morales accepts, but need to get Medicine to accept. Will call transfer center back to speak to Claudia Waller
[2023-06-26] MEDS: VANCOMYCIN HCL 2,500 MG in 0.9 % SODIUM CHLORIDE 250 ML 125 MG IV (19:53)
--- NOTE | 2023-06-26 20:00 | PC.NURSE ---
Called [facility], pushed through to voicemail. Left call back number and information. Awaiting call back. CR
--- NOTE | 2023-06-26 20:50 | PC.NURSE ---
Called [facility] about possible transfer of the pt. CR
--- NOTE | 2023-06-26 21:06 | PC.NURSE ---
[facility] called at this time. [facility] [place] [facility]- Karla Hull [phone]
--- NOTE | 2023-06-26 21:16 | PC.NURSE ---
Bed assignment per [facility]-- Patient going to [address] tele,
--- NOTE | 2023-06-26 21:21 | PC.NURSE ---
Attempted to give report. Nurse was in a patient room and will call me back
--- NOTE | 2023-06-26 21:55 | PC.NURSE ---
Attempted report again. Was informed the nurse was busy and would call me back.
--- NOTE | 2023-06-26 22:13 | PC.NURSE ---
EMS is on a 911 call and currently not available for transport. They will contact us when they're cleared from the call
--- NOTE | 2023-06-26 22:15 | PC.NURSE ---
Report given to Nellie [facility]
--- NOTE | 2023-06-26 22:28 | PC.NURSE ---
Attempted to call [facility]. No answer at this time. This RN left a message.
--- NOTE | 2023-06-26 22:36 | PC.NURSE ---
EMS called and they're in route
--- NOTE | 2023-06-26 22:38 | PC.NURSE ---
spoke to EMS for transfer to [facility]
== END 2023-06-26 23:04 | disposition other institution (70) ==
PROVIDERS: Physician Assistant; Emergency Provider Emergency Medicine; PCP Nurse Practitioner Acute Care
DX: E87.1 Hypo-osmolality and hyponatremia (principal); E87.5 Hyperkalemia; E27.49 Other adrenocortical insufficiency; M25.562 Pain in left knee; D72.829 Elevated white blood cell count, unspecified; F17.210 Nicotine dependence, cigarettes, uncomplicated
CPT/HCPCS: 36415; 70450; 71045; 71275; 73560; 73701; 74018; 74177; 80053; 81001; 83605; 85025; 85610; 85651; 85730; 86140; 87040; 87086; 87636; 93971; 96361; 96365; 96366; 96367; 96375; 99285; J0131; J2543; J3370; Q9967

== ENCOUNTER 2023-10-16 09:00 | Outpatient (RCR) | payer OTHER, SELFPAY | END 2023-10-16 09:05 | disposition home or self-care (01) | LOC: PT 09:00 | PROVIDERS: Visit Provider Physician Assistant | DX: M25.562 Pain in left knee (principal); Z96.652 Presence of left artificial knee joint | CPT/HCPCS: 97110; 97163; 97530 ==

== ENCOUNTER 2024-01-13 10:48 | Emergency (ER) | payer OTHER, SELFPAY ==
[2024-01-13 10:49] VITALS: BP 128/82; PULSE 68; RESP 18; TEMP 36.7; O2SAT 100; BMI 32.7
--- NOTE | 2024-01-13 11:57 | HMH.EDGENADL ---
Discharge Plan Disposition Patient Disposition: Home, Self-Care Prescriptions Prescriptions: New ibuprofen 800 mg tablet 800 mg PO TID PRN (Reason: pain) 7 Days Qty: 20 0RF cephalexin 500 mg capsule 500 mg PO QID 7 Days Qty: 28 0RF No Action divalproex 500 mg tablet,delayed release (DR/EC) 500 mg PO BID duloxetine 60 mg capsule,delayed release(DR/EC) 60 mg PO DAILY nebivolol 10 mg tablet 10 mg PO DAILY buspirone 7.5 mg tablet 7.5 mg PO BID tramadol 50 mg tablet 50 mg PO DAILY Referrals Follow up/Referrals: Provider,Referral, MD [Primary Care Provider] - See instructions Activity Restrictions/Add. Instructions Additional Instructions/Restrictions: No evidence of an emergent medical condition. Please take your headache medications and your antibiotics and return with a significant worsening of her symptoms Clinical Impressions Clinical Impression: Headache, Infection of scalp Print Language Print Language: Bruneian Discharge ED Provider: Ady Polk General Adult HPI General Chief complaint: Headache Stated complaint: Headache Time Seen by Provider: 01/13/24 11:43 Mode of Arrival: EMS Source of Information: Patient Limitations: No Limitations Description of Symptoms (Recalled from ER Triage Doc. by RN): PT FROM [facility], SENT FOR HEADACHE AND NECK PAIN. HX OF TBI History of Present Illness HPI narrative: Patient is a very pleasant 58-year-old with history of TBI who presents today with a mild headache. Denies it being severe any focal neurologic deficits denies any sudden component to this fevers chills or meningismus. Also complains of a mild infection on top aspect of his scalp. Related Data Home Medications ?Medication ?Instructions ?Recorded ?Confirmed buspirone 7.5 mg tablet 7.5 mg PO BID 04/04/23 04/04/23 divalproex 500 mg tablet,delayed 500 mg PO BID 04/04/23 04/04/23 release duloxetine 60 mg capsule,delayed 60 mg PO DAILY 04/04/23 04/04/23 release nebivolol 10 mg tablet 10 mg PO DAILY 04/04/23 04/04/23 tramadol 50 mg tablet 50 mg PO DAILY 04/04/23 04/04/23 Previous Rx's ?Medication ?Instructions ?Recorded cephalexin 500 mg capsule 500 mg PO QID 7 days #28 caps 01/13/24 ibuprofen 800 mg tablet 800 mg PO TID PRN pain 7 days #20 01/13/24 tabs Allergies Allergy/AdvReac Type Severity Reaction Status Date / Time No Known Allergies Allergy Verified 04/04/23 14:46 [facility] Disclaimer: The information contained in this section may have been updated after the patient was seen, as this information can be updated by other users. Social History (Updated 04/04/23 @ 14:45 by Almita Mullins MA) Smoking Status: Current every day smoker alcohol intake: never current occupational status: disabled Travel in the last 8 weeks: None ROS Obtained: Yes All systems reviewed & no additional complaints except as documented Physical Exam General General appearance: alert and in no apparent distress Head Head exam: other (Small 1 x 2 cm area of skin ulceration with inflammation surrounding it on the posterior aspect of the skin) Neck Neck exam: Absent tenderness or meningismus Respiratory Respiratory exam: Present normal lung sounds bilaterally Cardiovascular Cardiovascular exam: Present regular rate Neurological Exam Neurological exam: Present alert, oriented X3, CN II-XII intact and normal gait; Absent motor sensory deficit Medical Decision Making Medical Records Screening: Per USPSTF and CDC recommendations, given the prevalence of disease in our region, it is our hospital?s policy to screen for HIV and viral Hepatitis for all patients aged 18 and over and those with ongoing risk factors. Vinicius Inquiry Pt receiving controlled substance: No Vital Signs: 01/13/24 10:49 Temperature 98.0 F Temperature Source Oral Pulse Rate [Radial] 68 Respiratory Rate 18 Blood Pressure [Left Arm] 128/82 Blood Pressure Mean [Left Arm] 97 Blood Pressure Source [Left Arm] Automatic Cuff Blood Pressure Position [Left Arm] Sitting 02 Sat by Pulse Oximetry 100 Oxygen Delivery Method Room Air Orders (Tests/Meds): ED MEDICATIONS Discontinued Medications Generic Name Dose Route Start Last Admin Trade Name Freq PRN Reason Stop Dose Admin Acetaminophen 1,000 mg 01/13/24 11:50 Acetaminophen 500mg Tab PO 01/13/24 11:51 ONCE ONE Cephalexin HCl 500 mg 01/13/24 11:50 Cephalexin 500mg Capsule PO 01/13/24 11:51 ONCE ONE Medical Decision Narrative: 58-year-old with normal history and physical other than mild headache and a very mild scalp infection appears to have been some type of superficial injury or ulceration with surrounding mild cellulitis will treat with Keflex. Ibuprofen has been administered no indication for CT imaging lumbar puncture labs IV medications etc. Was discharged in stable condition. Critical Care Critical Care Time Critical Care Time: No
[2024-01-13] MEDS: ACETAMINOPHEN 500MG TAB 1000 MG PO (11:59)
[2024-01-13] MEDS: cephALEXin 500MG CAPSULE 500 MG PO (11:59)
--- NOTE | 2024-01-13 12:00 | PC.NURSE ---
called [facility] and advised them that this pt was ready to be picked up
--- NOTE | 2024-01-13 13:12 | PC.NURSE ---
tika called to let us know [facility] is coming to get the pt. they are currently unloading a food truck and will come get him after that.
[2024-01-13 13:20] VITALS: BP 109/73; PULSE 60; RESP 18; TEMP 36.7; O2SAT 99
== END 2024-01-13 13:20 | disposition home or self-care (01) ==
PROVIDERS: Emergency Provider Student in an Organized Health Care Education/Training Program
DX: R51.9 Headache, unspecified (principal); L08.9 Local infection of the skin and subcutaneous tissue, unspecified; M54.2 Cervicalgia
CPT/HCPCS: 99283

== ENCOUNTER 2024-02-16 21:59 | Emergency (ER) | payer OTHER, SELFPAY ==
[2024-02-16 21:59] VITALS: BP 143/96; PULSE 86; RESP 20; TEMP 36.6; O2SAT 97; BMI 29.5
--- NOTE | 2024-02-16 22:30 | ECG_ITS ---
APPROVED REPORT Exam: Resting ECG HR:70 bpm ECG Measurements Heart Rate 70 AXES WA 178 P 62 QRSd 95 QRS 61 QT 386 T 72 QTc 407 Conclusion Sinus rhythm Electronically signed by : NEVIN CALVERT, 02/18/2024 11:33:32
[2024-02-16 22:50] LABS: Basophils # 0.1 K/mm3 (0-0.2); Eosinophils # 0.5 K/mm3 (0.0-0.4); Eosinophils % 7.3 % (0.1-12.0); Hematocrit 45.5 % (42.0-52.0); Hemoglobin 15.7 g/dL (14.1-18.0); Lymphocytes # 2.5 K/mm3 (0.7-4.5); Lymphocytes % 35.5 % (10-50); Mean Corpuscular HGB Conc 34.4 g/dL (31.8-35.4); Mean Corpuscular Hemoglobin 29.1 pg (27.0-31.2); Mean Corpuscular Volume 84.5 fl (80-94); Mean Platelet Volume 8.9 fl (7.4-10.4); Monocytes # 0.5 K/mm3 (0.1-1.0); Monocytes % 7.1 % (1.7-9.3); Neutrophils # 3.4 K/mm3 (1.8-7.8); Neutrophils % 49.2 % (37.0-80.0); Platelet Count 220 K/mm3 (142-424); Red Blood Count 5.39 M/mm3 (4.60-6.20); Red Cell Distribution Width 14.6 % (11.5-17.5); White Blood Count 6.9 K/mm3 (4.8-10.8)
[2024-02-16 22:53] LABS: Albumin Level 3.9 g/dl (3.5-5.0); Chloride 105 mmol/L (98-107); Potassium 4.3 mmoL/L (3.5-5.1); Sodium 136 mmol/L (136-145)
[2024-02-16 22:56] LABS: Alanine Aminotransferase 39 U/L (12-78); Albumin/Globulin Ratio 1.1 (1.1-1.8); Alkaline Phosphatase 78 U/L (38-126); Anion Gap 9.3 mEq/L (5-15); Aspartate Amino Transferase 45 U/L (17-59); Bilirubin,Total 0.5 mg/dl (0.2-1.3); Blood Urea Nitrogen 16 mg/dl (9-20); Calcium 9.1 mg/dl (8.4-10.2); Carbon Dioxide 26 mmol/L (22.0-30.0); Creatinine Clearance Estimated 119 mL/min (50-200); Estimated Glomerular Filt Rate 77 ml/min (>60); GFR (African American) 93 ML/MIN (>60); Globulin 3.4 g/dL (1.3-3.2); Glucose 100 mg/dl (74-100); Total Protein,Serum 7.3 g/dl (6.3-8.2)
--- NOTE | 2024-02-16 23:05 | HMH.EDGENADL ---
Discharge Plan Disposition Patient Disposition: Home, Self-Care Prescriptions Prescriptions: No Action divalproex 500 mg tablet,delayed release (DR/EC) 500 mg PO BID duloxetine 60 mg capsule,delayed release(DR/EC) 60 mg PO DAILY nebivolol 10 mg tablet 10 mg PO DAILY buspirone 7.5 mg tablet 7.5 mg PO BID tramadol 50 mg tablet 50 mg PO DAILY ibuprofen 800 mg tablet 800 mg PO TID PRN (Reason: pain) 7 Days Qty: 20 0RF cephalexin 500 mg capsule 500 mg PO QID 7 Days Qty: 28 0RF Referrals Follow up/Referrals: Provider,Referral, MD [Primary Care Provider] - See instructions Activity Restrictions/Add. Instructions Additional Instructions/Restrictions: Please follow-up with your primary care provider. Please return to the emergency department if you develop any new or worsening symptoms or become concerned for your health. Clinical Impressions Clinical Impression: Palpitations Print Language Print Language: Italian Discharge ED Provider: Abraham Josue General Adult HPI <El Solorio MD - Last Filed: 02/16/24 23:10> General Chief complaint: PAIN Stated complaint: CP Time Seen by Provider: 02/16/24 22:34 Mode of Arrival: EMS Source of Information: Patient Limitations: No Limitations Description of Symptoms (Recalled from ER Triage Doc. by RN): Pt presents to ED for CP. Pt states now that he's here, he feels fine. Pt is a resident at [facility]. Pt states he was worried and wanted to come in EMS. Pt is A&O*4 and has a hx of TBI. History of Present Illness HPI narrative: Please note that above description of symptoms, in this electronic medical record under categorization of recalled from ER triage doctor by RN are reflective of an initial nursing assessment, however, is not reflective of my full history and physical exam that was personally taken and clarified. Consequentially, this preceding description of symptoms, which may include the patient's categorized chief complaint in the EMR, do not reflect my personal clinical impression, and the ultimate description of history of present illness and patient stated complaints should be deferred to this section of the note. Unless stated otherwise or congruent with this section of the note, additional signs, symptoms, or incongruence should be interpreted as inaccurate with my clinical impression. Related Data Home Medications ?Medication ?Instructions ?Recorded ?Confirmed buspirone 7.5 mg tablet 7.5 mg PO BID 04/04/23 04/04/23 divalproex 500 mg tablet,delayed 500 mg PO BID 04/04/23 04/04/23 release duloxetine 60 mg capsule,delayed 60 mg PO DAILY 04/04/23 04/04/23 release nebivolol 10 mg tablet 10 mg PO DAILY 04/04/23 04/04/23 tramadol 50 mg tablet 50 mg PO DAILY 04/04/23 04/04/23 Previous Rx's ?Medication ?Instructions ?Recorded cephalexin 500 mg capsule 500 mg PO QID 7 days #28 caps 01/13/24 ibuprofen 800 mg tablet 800 mg PO TID PRN pain 7 days #20 01/13/24 tabs Allergies Allergy/AdvReac Type Severity Reaction Status Date / Time No Known Allergies Allergy Verified 04/04/23 14:46 PFSH <El Solorio MD - Last Filed: 02/16/24 23:10> [facility] Disclaimer: The information contained in this section may have been updated after the patient was seen, as this information can be updated by other users. Social History (Updated 02/16/24 @ 23:10 by El Solorio MD) Smoking Status: Former smoker alcohol intake: never current occupational status: disabled Travel in the last 8 weeks: None <El Solorio MD - Last Filed: 02/16/24 23:10> ROS Obtained: Yes All systems reviewed & no additional complaints except as documented Physical Exam <El Solorio MD - Last Filed: 02/16/24 23:10> General General appearance: alert Head Head exam: atraumatic and normocephalic Eye Eye exam: Present normal appearance, PERRL and EOMI Neck Neck exam: Present normal inspection, full ROM and trachea midline Respiratory Respiratory exam: Absent respiratory distress, wheezes, stridor, accessory muscle use or prolonged expiratory phase Cardiovascular Cardiovascular exam: Present other (Pulses equal symmetric in upper and lower extremities) Abdominal Exam Abdominal exam: Present soft; Absent distention, tenderness or pulsatile mass Extremities Exam Extremities exam: Absent edema Neurological Exam Neurological exam: Present alert, oriented X3 and CN II-XII intact; Absent motor sensory deficit Skin Skin exam: Present warm and dry; Absent diaphoresis or erythema Medical Decision Making <El Solorio MD - Last Filed: 02/16/24 23:10> Medical Records Medical records reviewed: Yes I reviewed the patient's medical records. Screening: Per USPSTF and CDC recommendations, given the prevalence of disease in our region, it is our hospital?s policy to screen for HIV and viral Hepatitis for all patients aged 18 and over and those with ongoing risk factors. Vinicius Inquiry Pt receiving controlled substance: No Vinicius was queried for this patient: No Vital Signs: 02/16/24 21:59 Temperature 97.9 F Temperature Source Oral Pulse Rate [Left] 86 Respiratory Rate 20 Blood Pressure [Right Arm] 143/96 H Blood Pressure Mean [Right Arm] 111 02 Sat by Pulse Oximetry 97 Oxygen Delivery Method Room Air Lab Data Lab Results 02/16/24 22:05: WBC 6.9, RBC 5.39, Hgb 15.7, Hct 45.5, MCV 84.5, MCH 29.1, MCHC 34.4, RDW 14.6, Plt Count 220, MPV 8.9, Neut % (Auto) 49.2, Lymph % (Auto) 35.5, Steele % (Auto) 7.1, Eos % (Auto) 7.3, Baso % (Auto) 1.0, Neut # (Auto) 3.4, Lymph # (Auto) 2.5, Steele # (Auto) 0.5, Eos # (Auto) 0.5 H, Baso # (Auto) 0.1, Sodium 136, Potassium 4.3, Chloride 105, Carbon Dioxide 26, Anion Gap 9.3, BUN 16, Creatinine 1.00, Estimated Creat Clear 119, Estimated GFR 77, Est GFR ( Amer) 93, Glucose 100, Calcium 9.1, Magnesium 2.0, Total Bilirubin 0.5, AST 45, ALT 39, Alkaline Phosphatase 78, Troponin I < 0.01, Total Protein 7.3, Albumin 3.9, Globulin 3.4 H, Albumin/Globulin Ratio 1.1 02/16/24 22:05 02/16/24 22:05 Orders (Tests/Meds): ORDERS Category Date Time Status Complete Blood Count Auto Diff Stat Lab 02/16/24 22:05 Completed Comprehensive Metabolic Panel Stat Lab 02/16/24 22:05 Completed HIV (1&2) Antibody Rapid Stat Lab 02/16/24 22:05 Received Hep C Ab with Reflex to RNA Stat Lab 02/16/24 22:05 Received Magnesium Stat Lab 02/16/24 22:05 Completed Troponin I Q3H Lab 02/17/24 01:45 Ordered Troponin I Q3H Lab 02/17/24 04:45 Ordered Troponin I Stat Lab 02/16/24 22:05 Completed Medical Decision Narrative: 58-year-old male history of hypertension, hyperlipidemia, TBI presenting with palpitations. Patient states that palpitations were earlier in the day, states that they are positional, worse when he stands up, better when he lays down. No overt chest pain, nausea, vomiting, shortness of breath, or any neurologic deficits.. History was obtained via conversation with patient. On arrival, patient hemodynamically stable, alert, oriented x4, appropriate, GCS 15, moving all extremities spontaneously, pupils equal and reactive to light. Full physical exam performed and significant for very well-appearing male no acute distress. Cardiopulmonary exam within normal limits. Differential includes microvascular coronary artery disease, CHF, ACS, OR, coronary artery dissection, pneumothorax, PE, dissection, pericarditis, myocarditis, pneumothorax, aortic aneurysm, pneumonia, bronchitis, among others. Patient placed on continuous cardiac monitoring and continuous pulse ox with initial blood pressure 143/96, heart rate 86 bpm, saturation 97% on room air. Independent interpretation of EKG shows sinus rhythm [address] or T wave changes concern for acute ischemia. WA 178, QRS 95, QTc 4 7. Patient was given 324 mg aspirin for symptomatic management and correction of underlying abnormalities. Workup independently interpreted and significant for nonactionable chemistry. Rest of labs pending at time of handoff to oncoming physician. Lingo Cleaner disclaimer Much of this encounter note is an electronic school psychology professor spoken language to printed text. Electronic school psychology professor of the spoken language may permit errors. Although I have reviewed the note, some errors may still exist. <Abraham Josue MD - Last Filed: 02/17/24 00:12> Vital Signs: 02/16/24 21:59 Temperature 97.9 F Temperature Source Oral Pulse Rate [Left] 86 Respiratory Rate 20 Blood Pressure [Right Arm] 143/96 H Blood Pressure Mean [Right Arm] 111 02 Sat by Pulse Oximetry 97 Oxygen Delivery Method Room Air Lab Data Lab Results 02/16/24 22:05: WBC 6.9, RBC 5.39, Hgb 15.7, Hct 45.5, MCV 84.5, MCH 29.1, MCHC 34.4, RDW 14.6, Plt Count 220, MPV 8.9, Neut % (Auto) 49.2, Lymph % (Auto) 35.5, Steele % (Auto) 7.1, Eos % (Auto) 7.3, Baso % (Auto) 1.0, Neut # (Auto) 3.4, Lymph # (Auto) 2.5, Steele # (Auto) 0.5, Eos # (Auto) 0.5 H, Baso # (Auto) 0.1, Sodium 136, Potassium 4.3, Chloride 105, Carbon Dioxide 26, Anion Gap 9.3, BUN 16, Creatinine 1.00, Estimated Creat Clear 119, Estimated GFR 77, Est GFR ( Amer) 93, Glucose 100, Calcium 9.1, Magnesium 2.0, Total Bilirubin 0.5, AST 45, ALT 39, Alkaline Phosphatase 78, Troponin I < 0.01, Total Protein 7.3, Albumin 3.9, Globulin 3.4 H, Albumin/Globulin Ratio 1.1 Orders (Tests/Meds): ORDERS Category Date Time Status Complete Blood Count Auto Diff Stat Lab 02/16/24 22:05 Completed Comprehensive Metabolic Panel Stat Lab 02/16/24 22:05 Completed HIV (1&2) Antibody Rapid Stat Lab 02/16/24 22:05 Received Hep C Ab with Reflex to RNA Stat Lab 02/16/24 22:05 Received Magnesium Stat Lab 02/16/24 22:05 Completed Troponin I Q3H Lab 02/17/24 01:45 Ordered Troponin I Q3H Lab 02/17/24 04:45 Ordered Troponin I Stat Lab 02/16/24 22:05 Completed Medical Decision Narrative: 58-year-old male history of hypertension, hyperlipidemia, TBI presenting with palpitations. Patient states that palpitations were earlier in the day, states that they are positional, worse when he stands up, better when he lays down. No overt chest pain, nausea, vomiting, shortness of breath, or any neurologic deficits.. History was obtained via conversation with patient. On arrival, patient hemodynamically stable, alert, oriented x4, appropriate, GCS 15, moving all extremities spontaneously, pupils equal and reactive to light. Full physical exam performed and significant for very well-appearing male no acute distress. Cardiopulmonary exam within normal limits. Differential includes microvascular coronary artery disease, CHF, ACS, OR, coronary artery dissection, pneumothorax, PE, dissection, pericarditis, myocarditis, pneumothorax, aortic aneurysm, pneumonia, bronchitis, among others. Patient placed on continuous cardiac monitoring and continuous pulse ox with initial blood pressure 143/96, heart rate 86 bpm, saturation 97% on room air. Independent interpretation of EKG shows sinus rhythm [address] or T wave changes concern for acute ischemia. WA 178, QRS 95, QTc 4 7. Patient was given 324 mg aspirin for symptomatic management and correction of underlying abnormalities. Workup independently interpreted and significant for nonactionable chemistry. Rest of labs pending at time of handoff to oncoming physician. Lingo Cleaner disclaimer Much of this encounter note is an electronic school psychology professor spoken language to printed text. Electronic school psychology professor of the spoken language may permit errors. Although I have reviewed the note, some errors may still exist. Joselo HURD: I assumed care of the patient at the time of handoff from the prior provider. On reassessment patient remains hemodynamically stable. He reports symptomatic improvement. Blood work interpreted by me and shows no evidence of anemia or significant electrolyte derangement. Initial troponin undetectably low. Interact discussion was had with patient regarding his presentation. He was discharged in stable condition with return precautions. Critical Care <El Solorio MD - Last Filed: 02/16/24 23:10> Critical Care Time Critical Care Time: No
[2024-02-16 23:10] LABS: Troponin I < 0.01 ng/ml (0.00-0.034)
[2024-02-17 00:27] VITALS: BP 124/72; PULSE 74; RESP 18; TEMP 36.6; O2SAT 98
[2024-02-17 03:09] LABS: HIV (1&2) Antibody Rapid NONREACTIVE (NONREACTIVE)
[2024-02-18 11:19] LABS: HCV Ab Non Reactive (Non Reactive)
== END 2024-02-17 01:18 | disposition home or self-care (01) ==
PROVIDERS: Emergency Medicine; Emergency Provider Emergency Medicine
DX: R00.2 Palpitations (principal); R07.9 Chest pain, unspecified
CPT/HCPCS: 80053; 83735; 84484; 85025; 86803; 87389; 93005; 99283

== ENCOUNTER 2024-02-20 22:05 | Emergency (ER) | payer OTHER, SELFPAY ==
[2024-02-20 22:05] VITALS: BP 112/81; PULSE 71; RESP 18; TEMP 36.6; O2SAT 96; BMI 30.4
[2024-02-20 22:15] VITALS: PULSE 62; O2SAT 96
[2024-02-20 22:31] VITALS: BP 104/67; PULSE 60; O2SAT 97
--- NOTE | 2024-02-20 22:59 | ED_ITS ---
Discharge Plan Disposition Patient Disposition: Home, Self-Care Prescriptions Prescriptions: No Action divalproex 500 mg tablet,delayed release (DR/EC) 500 mg PO BID duloxetine 60 mg capsule,delayed release(DR/EC) 60 mg PO DAILY nebivolol 10 mg tablet 10 mg PO DAILY buspirone 7.5 mg tablet 7.5 mg PO BID tramadol 50 mg tablet 50 mg PO DAILY ibuprofen 800 mg tablet 800 mg PO TID PRN (Reason: pain) 7 Days Qty: 20 0RF cephalexin 500 mg capsule 500 mg PO QID 7 Days Qty: 28 0RF Referrals Follow up/Referrals: Jayme Bro APRN [Primary Care Provider] - See instructions Activity Restrictions/Add. Instructions Additional Instructions/Restrictions: Please follow-up with your primary care provider. Please return to the emergency department if you develop any new or worsening symptoms or become concerned for your health. Clinical Impressions Clinical Impression: Encounter for medical assessment Print Language Print Language: Faroese Discharge ED Provider: Abraham Josue Adult HPI General Chief complaint: Recheck/Abnormal Lab/Rx Stated complaint: ETOH + Time Seen by Provider: 02/20/24 22:59 Mode of Arrival: EMS Source of Information: Patient and EMS Limitations: No Limitations Description of Symptoms (Recalled from ER Triage Doc. by RN): Patient has no complaints; EMS states patient was sent because [facility] states his blood pressure was elevated, however it was normal for EMS. Patient has been out with family drinking History of Present Illness HPI narrative: 58-year-old male with history of prior traumatic brain injury presents via EMS for reported high blood pressure at [place]. His blood pressure was normal with EMS and normal on arrival. Patient denies any chest pain abdominal pain shortness of breath or any other symptoms at this time. Related Data Home Medications ?Medication ?Instructions ?Recorded ?Confirmed buspirone 7.5 mg tablet 7.5 mg PO BID 04/04/23 04/04/23 divalproex 500 mg tablet,delayed 500 mg PO BID 04/04/23 04/04/23 release duloxetine 60 mg capsule,delayed 60 mg PO DAILY 04/04/23 04/04/23 release nebivolol 10 mg tablet 10 mg PO DAILY 04/04/23 04/04/23 tramadol 50 mg tablet 50 mg PO DAILY 04/04/23 04/04/23 Previous Rx's ?Medication ?Instructions ?Recorded cephalexin 500 mg capsule 500 mg PO QID 7 days #28 caps 01/13/24 ibuprofen 800 mg tablet 800 mg PO TID PRN pain 7 days #20 01/13/24 tabs Allergies Allergy/AdvReac Type Severity Reaction Status Date / Time No Known Allergies Allergy Verified 04/04/23 14:46 [facility] Disclaimer: The information contained in this section may have been updated after the patient was seen, as this information can be updated by other users. Social History (Updated 02/16/24 @ 23:10 by El Solorio MD) Smoking Status: Current some day smoker alcohol intake: never current occupational status: disabled ROS Obtained: Yes All systems reviewed & no additional complaints except as documented Physical Exam General General appearance: alert and in no apparent distress Head Head exam: atraumatic and normocephalic Eye Eye exam: Present normal appearance, PERRL and EOMI ENT ENT exam: Present normal oropharynx and normal external ear exam Neck Neck exam: Present normal inspection and full ROM Chest Chest inspection: Present normal inspection and symmetric chest wall rise; Absent tenderness Respiratory Respiratory exam: Present normal lung sounds bilaterally; Absent respiratory distress Cardiovascular Cardiovascular exam: Present regular rate and normal rhythm Abdominal Exam Abdominal exam: Present soft; Absent distention, tenderness or guarding Extremities Exam Extremities exam: Present normal inspection; Absent edema or joint swelling Back Exam Back exam: Present normal inspection; Absent tenderness Neurological Exam Neurological exam: Present alert and oriented X3; Absent motor sensory deficit Psychiatric Psychiatric exam: Present normal affect and normal mood Skin Skin exam: Present warm, dry and normal color Lymphatic Lymphatic Findings: no adenopathy Medical Decision Making Medical Records Medical records reviewed: Yes I reviewed the patient's medical records. Screening: Per USPSTF and CDC recommendations, given the prevalence of disease in our region, it is our hospital?s policy to screen for HIV and viral Hepatitis for all patients aged 18 and over and those with ongoing risk factors. Vinicius Inquiry Pt receiving controlled substance: No Vinicius was queried for this patient: No Vital Signs: 02/20/24 22:05 02/20/24 22:15 02/20/24 22:31 Temperature 97.9 F Temperature Source Oral Pulse Rate 62 60 Pulse Rate [Left Radial] 71 Respiratory Rate 18 Blood Pressure 104/67 L Blood Pressure [Right Arm] 112/81 Blood Pressure Mean [Right Arm] 91 Blood Pressure Source [Right Arm] Automatic Cuff Blood Pressure Position [Right Arm] Supine 02 Sat by Pulse Oximetry 96 96 97 Oxygen Delivery Method Room Air 02/20/24 23:01 02/20/24 23:31 02/21/24 00:01 Temperature Temperature Source Pulse Rate 62 61 56 L Pulse Rate [Left Radial] Respiratory Rate Blood Pressure 103/62 L 104/67 L 106/64 L Blood Pressure [Right Arm] Blood Pressure Mean [Right Arm] Blood Pressure Source [Right Arm] Blood Pressure Position [Right Arm] 02 Sat by Pulse Oximetry 98 96 95 Oxygen Delivery Method Lab Data Lab results reviewed: Yes I reviewed the patient's lab results. Orders (Tests/Meds): ED MEDICATIONS Discontinued Medications Generic Name Dose Route Start Last Admin Trade Name Lise PRN Reason Stop Dose Admin Acetaminophen 1,000 mg 02/20/24 23:10 02/20/24 23:17 Acetaminophen 500mg Tab PO 02/20/24 23:11 Not Given ONCE ONE Clindamycin Phosphate 600 mg in 50 mls @ 100 mls/hr 02/20/24 23:05 02/20/24 23:17 Clindamycin 600mg/50ml D5w Premix IV 02/20/24 23:34 Not Given ONCE ONE Sodium Chloride 1,000 mls @ 999 mls/hr 02/20/24 23:15 Sod Chlor 0.9% 1000ml Bag IV 02/21/24 00:15 .Q1H1M JAISON Ketorolac Tromethamine 30 mg 02/20/24 23:10 02/20/24 23:17 Ketorolac 30mg/Ml Vial IV 02/20/24 23:11 Not Given ONCE ONE Medical Decision Narrative: 58-year-old male with history of TBI presents with concern for high blood pressure at his facility. With EMS and on arrival to the ER his blood pressure is normal. He denies any other complaints. Differential diagnosis includes but not limited to hypertensive urgency, hypertensive emergency, asymptomatic hypertension. No evidence of abnormal blood pressure at this time. No other complaints. Patient is discharged in stable condition with return precautions. Procedures Risk/Benefits of Procedure(s) Were Explained: Yes Critical Care Critical Care Time Critical Care Time: No
[2024-02-20 23:01] VITALS: BP 103/62; PULSE 62; O2SAT 98
[2024-02-20 23:31] VITALS: BP 104/67; PULSE 61; O2SAT 96
[2024-02-21 00:01] VITALS: BP 106/64; PULSE 56; O2SAT 95
--- NOTE | 2024-02-21 00:44 | PC.NURSE ---
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
[2024-02-21 00:46] VITALS: BP 106/74; PULSE 72; RESP 18; TEMP 36.6; O2SAT 98
== END 2024-02-21 00:56 | disposition home or self-care (01) ==
PROVIDERS: Emergency Provider Emergency Medicine; PCP Nurse Practitioner Acute Care
DX: Z00.8 Encounter for other general examination (principal); R03.0 Elevated blood-pressure reading, without diagnosis of hypertension
CPT/HCPCS: 96361; 96374; 99283

== ENCOUNTER 2024-04-10 19:41 | Emergency (ER) | payer OTHER, SELFPAY ==
[2024-04-10 19:41] VITALS: BP 114/81; PULSE 72; RESP 18; TEMP 36.6; O2SAT 93; BMI 28.5
--- NOTE | 2024-04-10 19:43 | ED_ITS ---
Discharge Plan Disposition Patient Disposition: Home, Self-Care Condition: Good Prescriptions Prescriptions: New acetaminophen 500 mg tablet 500 mg PO Q6H PRN (Reason: pain) Qty: 14 0RF No Action divalproex 500 mg tablet,delayed release (DR/EC) 500 mg PO BID duloxetine 60 mg capsule,delayed release(DR/EC) 60 mg PO DAILY nebivolol 10 mg tablet 10 mg PO DAILY buspirone 7.5 mg tablet 7.5 mg PO BID tramadol 50 mg tablet 50 mg PO DAILY ibuprofen 800 mg tablet 800 mg PO TID PRN (Reason: pain) 7 Days Qty: 20 0RF cephalexin 500 mg capsule 500 mg PO QID 7 Days Qty: 28 0RF Referrals Follow up/Referrals: Jayme Bro APRN [Primary Care Provider] - See instructions Activity Restrictions/Add. Instructions Additional Instructions/Restrictions: You were evaluated in the ER and are appropriate for discharge at this time. Avoid alcohol use. Take Tylenol if needed for headache or pain. Make an appointment with your primary care doctor for reevaluation in 2 to 3 days. Return to the ER with new, worsening, or otherwise concerning symptoms. Clinical Impressions Clinical Impression: Alcohol intoxication, Head injury, Neck strain Print Language Print Language: Egyptian Discharge ED Provider: Ady Polk General Adult HPI <KEYANA Carroll - Last Filed: 04/10/24 20:21> General Chief complaint: Recheck/Abnormal Lab/Rx Stated complaint: Fall Time Seen by Provider: 04/10/24 19:41 History of Present Illness HPI narrative: Patient presents for evaluation of a fall. Patient was out drinking and police were called. They called [employer] personnel who came to get the patient. [facility] he [facility] falling. He was observed to hit his head. He did not lose consciousness. Patient himself is an unreliable historian currently as he is severely intoxicated but he currently has no visible trauma and has no complaints. There was no witnessed loss of consciousness. He was ambulatory at the scene. Related Data Home Medications ?Medication ?Instructions ?Recorded ?Confirmed buspirone 7.5 mg tablet 7.5 mg PO BID 04/04/23 04/04/23 divalproex 500 mg tablet,delayed 500 mg PO BID 04/04/23 04/04/23 release duloxetine 60 mg capsule,delayed 60 mg PO DAILY 04/04/23 04/04/23 release nebivolol 10 mg tablet 10 mg PO DAILY 04/04/23 04/04/23 tramadol 50 mg tablet 50 mg PO DAILY 04/04/23 04/04/23 Previous Rx's ?Medication ?Instructions ?Recorded cephalexin 500 mg capsule 500 mg PO QID 7 days #28 caps 01/13/24 ibuprofen 800 mg tablet 800 mg PO TID PRN pain 7 days #20 01/13/24 tabs acetaminophen 500 mg tablet 500 mg PO Q6H PRN pain #14 tabs 04/11/24 Allergies Allergy/AdvReac Type Severity Reaction Status Date / Time No Known Allergies Allergy Verified 04/04/23 14:46 [facility] <KEYANA Carroll - Last Filed: 04/10/24 20:21> [facility] Disclaimer: The information contained in this section may have been updated after the patient was seen, as this information can be updated by other users. Social History (Updated 02/16/24 @ 23:10 by El Solorio MD) Smoking Status: Current every day smoker alcohol intake: never current occupational status: disabled Travel in the last 8 weeks: None Have you lived/traveled outside [place] in past 30 days?: No Contact w/someone who lives/traveled outside US past 30 days?: No Exposure to someone with infectious disease in past 14 days?: No Do you have a fever (greater than 100.4 F or 38 C)?: No Have you tested positive for COVID-19: No Exposed to someone with COVID-19 in past 14 days?: No Do you have a sore throat?: No Do you have a cough?: No Do you have any weakness?: No Do you have any diarrhea?: No Are you experiencing any unusual bleeding?: No Do you have any muscle aches/pain?: Yes Do you have any abdominal pain?: No Are you experiencing loss of taste or smell?: No <KEYANA Carroll - Last Filed: 04/10/24 20:21> ROS Obtained: Yes Systems reviewed as appropriate & no additional complaints except as documented Physical Exam <KEYANA Carroll - Last Filed: 04/10/24 20:21> General General appearance: in no apparent distress and appears intoxicated Head Head exam: atraumatic and normal inspection Eye Eye exam: Present normal appearance, PERRL (Dilated pupils but equal and reactive) and EOMI ENT ENT exam: Present normal oropharynx and mucous membranes moist; Absent normal exam (Patient has severe dental caries) Neck Neck exam: Present normal inspection, full ROM and trachea midline; Absent tenderness Chest Chest inspection: Present normal inspection and symmetric chest wall rise Respiratory Respiratory exam: Present normal lung sounds bilaterally Cardiovascular Cardiovascular exam: Present regular rate Neurological Exam Neurological exam: Present CN II-XII intact; Absent alert (Patient is severely intoxicated and is not oriented to circumstance but is oriented to person and place.) or oriented X3 Medical Decision Making <KEYANA Carroll - Last Filed: 04/10/24 20:21> Medical Records Medical records reviewed: Yes I reviewed the patient's medical records. Screening: Per USPSTF and CDC recommendations, given the prevalence of disease in our region, it is our hospital?s policy to screen for HIV and viral Hepatitis for all patients aged 18 and over and those with ongoing risk factors. Vinicius Inquiry Pt receiving controlled substance: No Vital Signs: 04/10/24 19:41 04/10/24 21:00 04/10/24 21:57 Temperature 97.8 F Temperature Source Oral Pulse Rate Pulse Rate [Left Radial] 72 Respiratory Rate 18 18 Blood Pressure 99/57 L Blood Pressure [Right Arm] 114/81 99/57 L Blood Pressure Mean [Right Arm] 92 71 Blood Pressure Source Blood Pressure Source [Right Arm] Automatic Cuff Automatic Cuff Blood Pressure Position Blood Pressure Position [Right Arm] Sitting 02 Sat by Pulse Oximetry 93 L 95 Oxygen Delivery Method Room Air 04/10/24 23:30 04/11/24 00:56 Temperature 97.8 F Temperature Source Oral Pulse Rate 72 Pulse Rate [Left Radial] Respiratory Rate 16 18 Blood Pressure 148/77 H Blood Pressure [Right Arm] Blood Pressure Mean [Right Arm] Blood Pressure Source Automatic Cuff Blood Pressure Source [Right Arm] Blood Pressure Position Sitting Blood Pressure Position [Right Arm] 02 Sat by Pulse Oximetry Oxygen Delivery Method Room Air Lab Data Lab results reviewed: Yes I reviewed the patient's lab results. Lab Results 04/10/24 20:20: WBC 7.5, RBC 5.18, Hgb 15.4, Hct 44.9, MCV 86.7, MCH 29.7, MCHC 34.3, RDW 12.9, Plt Count 213, MPV 10.9 H, Neut % (Auto) 51.8, Lymph % (Auto) 35.6, Cocke % (Auto) 5.7, Eos % (Auto) 5.9, Baso % (Auto) 0.7, Neut # (Auto) 3.9, Lymph # (Auto) 2.7, Cocke # (Auto) 0.4, Eos # (Auto) 0.4, Baso # (Auto) 0.1, PT 9.8, INR 0.88 L, Sodium 136, Potassium 4.3, Chloride 104, Carbon Dioxide 25, Anion Gap 11.3, BUN 17, Creatinine 0.90, Estimated Creat Clear 121, Estimated GFR 87, Est GFR ( Amer) 105, Glucose 94, Calcium 9.1, Magnesium 2.2, Total Bilirubin 0.3, AST 41, ALT 34, Alkaline Phosphatase 69, Total Protein 7.0, Albumin 4.2, Globulin 2.8, Albumin/Globulin Ratio 1.5, Plasma/Serum Alcohol 264 H, HCV Ab JELLY w/Rflx PCR Qn Negative, HIV Ag/Ab Combo Qual Negative 04/10/24 20:20 04/10/24 20:20 Orders (Tests/Meds): ED MEDICATIONS Discontinued Medications Generic Name Dose Route Start Last Admin Trade Name Freq PRN Reason Stop Dose Admin Acetaminophen 1,000 mg 04/10/24 19:49 04/10/24 20:12 Acetaminophen 500mg Tab PO 04/10/24 19:50 Not Given ONCE ONE Ketorolac Tromethamine 30 mg 04/10/24 19:49 04/10/24 20:12 Ketorolac 30mg/Ml Vial IM 04/10/24 19:50 Not Given ONCE ONE ORDERS Category Date Time Status CT cervical spine wo con Stat Cat Scan 04/10/24 20:[address] head/brain wo con Stat Cat Scan 04/10/24 20:06 Completed Consult Wire Tinner [CONS] Routine Cons 04/10/24 19:58 Active CBC w/Auto Diff [Complete Blood Count Auto Diff] Stat Lab 04/10/24 20:20 Completed CMP [Comprehensive Metabolic Panel] Stat Lab 04/10/24 20:20 Completed Ethyl Alcohol Stat Lab 04/10/24 20:20 Completed HIV Combo Stat Lab 04/10/24 20:20 Completed Hepatitis C Ab Qual. W/ RFX Stat Lab 04/10/24 20:20 Completed INR [Prothrombin Time INR] Stat Lab 04/10/24 20:20 Completed Magnesium Stat Lab 04/10/24 20:20 Completed Medical Decision Narrative: In summary patient is a 58-year-old male who presents to the emergency department for evaluation of a fall and intoxication. Patient is hemodynamically stable at 114/81 pulse 72 normal sinus rhythm on the bedside monitor breathing 18 times a minute satting at 93% on room air upon arrival, afebrile at 97.8. Physical exam is remarkable for an obviously intoxicated gentleman who is awake protecting his airway oriented to person place but not circumstance. Physical exam is unremarkable nonfocal I can find no visible injury abrasion contusions deformity. Patient has no depressed skull fracture has no C-spine tenderness he is moving all 4 extremities vigorously despite c- collar and is unable to comply with request to stay still. Differential diagnosis includes occult C-spine or intracranial injury other occult fracture or contusion Cetera. Initial workup will be conducted with CT scan of the head and neck without contrast hematologic labs. Initial interventions include crystalloid bolus for now. Initial workup ordered and pending at the time of handoff to Dr. Polk at 2100 hrs. <Ady Polk MD - Last Filed: 04/10/24 23:22> Vital Signs: 04/10/24 19:41 04/10/24 21:00 04/10/24 21:57 Temperature 97.8 F Temperature Source Oral Pulse Rate Pulse Rate [Left Radial] 72 Respiratory Rate 18 18 Blood Pressure 99/57 L Blood Pressure [Right Arm] 114/81 99/57 L Blood Pressure Mean [Right Arm] 92 71 Blood Pressure Source Blood Pressure Source [Right Arm] Automatic Cuff Automatic Cuff Blood Pressure Position Blood Pressure Position [Right Arm] Sitting 02 Sat by Pulse Oximetry 93 L 95 Oxygen Delivery Method Room Air 04/10/24 23:30 04/11/24 00:56 Temperature 97.8 F Temperature Source Oral Pulse Rate 72 Pulse Rate [Left Radial] Respiratory Rate 16 18 Blood Pressure 148/77 H Blood Pressure [Right Arm] Blood Pressure Mean [Right Arm] Blood Pressure Source Automatic Cuff Blood Pressure Source [Right Arm] Blood Pressure Position Sitting Blood Pressure Position [Right Arm] 02 Sat by Pulse Oximetry Oxygen Delivery Method Room Air Lab Data Lab results reviewed: Yes I reviewed the patient's lab results. Lab Results 04/10/24 20:20: WBC 7.5, RBC 5.18, Hgb 15.4, Hct 44.9, MCV 86.7, MCH 29.7, MCHC 34.3, RDW 12.9, Plt Count 213, MPV 10.9 H, Neut % (Auto) 51.8, Lymph % (Auto) 35.6, Cocke % (Auto) 5.7, Eos % (Auto) 5.9, Baso % (Auto) 0.7, Neut # (Auto) 3.9, Lymph # (Auto) 2.7, Cocke # (Auto) 0.4, Eos # (Auto) 0.4, Baso # (Auto) 0.1, PT 9.8, INR 0.88 L, Sodium 136, Potassium 4.3, Chloride 104, Carbon Dioxide 25, Anion Gap 11.3, BUN 17, Creatinine 0.90, Estimated Creat Clear 121, Estimated GFR 87, Est GFR ( Amer) 105, Glucose 94, Calcium 9.1, Magnesium 2.2, Total Bilirubin 0.3, AST 41, ALT 34, Alkaline Phosphatase 69, Total Protein 7.0, Albumin 4.2, Globulin 2.8, Albumin/Globulin Ratio 1.5, Plasma/Serum Alcohol 264 H, HCV Ab JELLY w/Rflx PCR Qn Negative, HIV Ag/Ab Combo Qual Negative Orders (Tests/Meds): ED MEDICATIONS Discontinued Medications Generic Name Dose Route Start Last Admin Trade Name Freq PRN Reason Stop Dose Admin Acetaminophen 1,000 mg 04/10/24 19:49 04/10/24 20:12 Acetaminophen 500mg Tab PO 04/10/24 19:50 Not Given ONCE ONE Ketorolac Tromethamine 30 mg 04/10/24 19:49 04/10/24 20:12 Ketorolac 30mg/Ml Vial IM 04/10/24 19:50 Not Given ONCE ONE ORDERS Category Date Time Status CT cervical spine wo con Stat Cat Scan 04/10/24 20:[address] head/brain wo con Stat Cat Scan 04/10/24 20:06 Completed Consult Wire Tinner [CONS] Routine Cons 04/10/24 19:58 Active CBC w/Auto Diff [Complete Blood Count Auto Diff] Stat Lab 04/10/24 20:20 Completed CMP [Comprehensive Metabolic Panel] Stat Lab 04/10/24 20:20 Completed Ethyl Alcohol Stat Lab 04/10/24 20:20 Completed HIV Combo Stat Lab 04/10/24 20:20 Completed Hepatitis C Ab Qual. W/ RFX Stat Lab 04/10/24 20:20 Completed INR [Prothrombin Time INR] Stat Lab 04/10/24 20:20 Completed Magnesium Stat Lab 04/10/24 20:20 Completed Medical Decision Narrative: In summary patient is a 58-year-old male who presents to the emergency department for evaluation of a fall and intoxication. Patient is hemodynamically stable at 114/81 pulse 72 normal sinus rhythm on the bedside monitor breathing 18 times a minute satting at 93% on room air upon arrival, afebrile at 97.8. Physical exam is remarkable for an obviously intoxicated gentleman who is awake protecting his airway oriented to person place but not circumstance. Physical exam is unremarkable nonfocal I can find no visible injury abrasion contusions deformity. Patient has no depressed skull fracture has no C-spine tenderness he is moving all 4 extremities vigorously despite c- collar and is unable to comply with request to stay still. Differential diagnosis includes occult C-spine or intracranial injury other occult fracture or contusion Cetera. Initial workup will be conducted with CT scan of the head and neck without contrast hematologic labs. Initial interventions include crystalloid bolus for now. Initial workup ordered and pending at the time of handoff to Dr. Polk at 2100 hrs. Patient still significantly intoxicated at 11:00 PM patient had an alcohol level of 260 many patient will have 67 hours from time of onset for his alcohol level to be close to 100. Given the fact that he lives in a facility that does not have significant oversight of this patient's and the patient's baseline chronic medical status is questionable at as well as the fact that there is significant stone I still outside we will wait till the patient is sober before discharging the patient. Care will be transitioned to Dr. Aurelia Awan at 11:20 PM. Patient remains in ED observation. <Bin Awan MD - Last Filed: 04/11/24 03:32> Vital Signs: 04/10/24 19:41 04/10/24 21:00 04/10/24 21:57 Temperature 97.8 F Temperature Source Oral Pulse Rate Pulse Rate [Left Radial] 72 Respiratory Rate 18 18 Blood Pressure 99/57 L Blood Pressure [Right Arm] 114/81 99/57 L Blood Pressure Mean [Right Arm] 92 71 Blood Pressure Source Blood Pressure Source [Right Arm] Automatic Cuff Automatic Cuff Blood Pressure Position Blood Pressure Position [Right Arm] Sitting 02 Sat by Pulse Oximetry 93 L 95 Oxygen Delivery Method Room Air 04/10/24 23:30 04/11/24 00:56 Temperature 97.8 F Temperature Source Oral Pulse Rate 72 Pulse Rate [Left Radial] Respiratory Rate 16 18 Blood Pressure 148/77 H Blood Pressure [Right Arm] Blood Pressure Mean [Right Arm] Blood Pressure Source Automatic Cuff Blood Pressure Source [Right Arm] Blood Pressure Position Sitting Blood Pressure Position [Right Arm] 02 Sat by Pulse Oximetry Oxygen Delivery Method Room Air Lab Data Lab Results 04/10/24 20:20: WBC 7.5, RBC 5.18, Hgb 15.4, Hct 44.9, MCV 86.7, MCH 29.7, MCHC 34.3, RDW 12.9, Plt Count 213, MPV 10.9 H, Neut % (Auto) 51.8, Lymph % (Auto) 35.6, Cocke % (Auto) 5.7, Eos % (Auto) 5.9, Baso % (Auto) 0.7, Neut # (Auto) 3.9, Lymph # (Auto) 2.7, Cocke # (Auto) 0.4, Eos # (Auto) 0.4, Baso # (Auto) 0.1, PT 9.8, INR 0.88 L, Sodium 136, Potassium 4.3, Chloride 104, Carbon Dioxide 25, Anion Gap 11.3, BUN 17, Creatinine 0.90, Estimated Creat Clear 121, Estimated GFR 87, Est GFR ( Amer) 105, Glucose 94, Calcium 9.1, Magnesium 2.2, Total Bilirubin 0.3, AST 41, ALT 34, Alkaline Phosphatase 69, Total Protein 7.0, Albumin 4.2, Globulin 2.8, Albumin/Globulin Ratio 1.5, Plasma/Serum Alcohol 264 H, HCV Ab JELLY w/Rflx PCR Qn Negative, HIV Ag/Ab Combo Qual Negative Orders (Tests/Meds): ED MEDICATIONS Discontinued Medications Generic Name Dose Route Start Last Admin Trade Name Freq PRN Reason Stop Dose Admin Acetaminophen 1,000 mg 04/10/24 19:49 04/10/24 20:12 Acetaminophen 500mg Tab PO 04/10/24 19:50 Not Given ONCE ONE Ketorolac Tromethamine 30 mg 04/10/24 19:49 04/10/24 20:12 Ketorolac 30mg/Ml Vial IM 04/10/24 19:50 Not Given ONCE ONE ORDERS Category Date Time Status CT cervical spine wo con Stat Cat Scan 04/10/24 20:[address] head/brain wo con Stat Cat Scan 04/10/24 20:06 Completed Consult Wire Tinner [CONS] Routine Cons 04/10/24 19:58 Active CBC w/Auto Diff [Complete Blood Count Auto Diff] Stat Lab 04/10/24 20:20 Completed CMP [Comprehensive Metabolic Panel] Stat Lab 04/10/24 20:20 Completed Ethyl Alcohol Stat Lab 04/10/24 20:20 Completed HIV Combo Stat Lab 04/10/24 20:20 Completed Hepatitis C Ab Qual. W/ RFX Stat Lab 04/10/24 20:20 Completed INR [Prothrombin Time INR] Stat Lab 04/10/24 20:20 Completed Magnesium Stat Lab 04/10/24 20:20 Completed Medical Decision Narrative: In summary patient is a 58-year-old male who presents to the emergency department for evaluation of a fall and intoxication. Patient is hemodynamically stable at 114/81 pulse 72 normal sinus rhythm on the bedside monitor breathing 18 times a minute satting at 93% on room air upon arrival, afebrile at 97.8. Physical exam is remarkable for an obviously intoxicated gentleman who is awake protecting his airway oriented to person place but not circumstance. Physical exam is unremarkable nonfocal I can find no visible injury abrasion contusions deformity. Patient has no depressed skull fracture has no C-spine tenderness he is moving all 4 extremities vigorously despite c- collar and is unable to comply with request to stay still. Differential diagnosis includes occult C-spine or intracranial injury other occult fracture or contusion Cetera. Initial workup will be conducted with CT scan of the head and neck without contrast hematologic labs. Initial interventions include crystalloid bolus for now. Initial workup ordered and pending at the time of handoff to Dr. Polk at 2100 hrs. Patient still significantly intoxicated at 11:00 PM patient had an alcohol level of 260 many patient will have 67 hours from time of onset for his alcohol level to be close to 100. Given the fact that he lives in a facility that does not have significant oversight of this patient's and the patient's baseline chronic medical status is questionable at as well as the fact that there is significant stone I still outside we will wait till the patient is sober before discharging the patient. Care will be transitioned to Dr. Aurelia Awan at 11:20 PM. Patient remains in ED observation. Awan: Upon my assumption of care patient was resting comfortably, sleeping soundly. He was able to be aroused. He still appeared intoxicated at the time of my assumption of care so he will remain in ED observation for continued metabolization until he is clinically sober. I reviewed multiple previous notes of patient's prior encounters which demonstrate at baseline he is a poor historian of his health and has memory issues, cognitive difficulties. I reviewed labs and imaging which are overall reassuring aside from patient's alcohol intoxication. CT head and cervical spine were personally interpreted and I do not appreciate acute traumatic injury. Radiology reads are in agreement. Patient continued to be stable in the ER and was frequently reassessed. He ambulated independently to the restroom multiple times. He was speaking clearly and demanding food and water. He was also walking around the ER asking to go home but was able to be redirected back to his room. He was tolerating oral intake and was at his mental baseline based on previously available information. He is fully oriented now and tells me he drank a lot tonight. Now that he is fully oriented including to circumstance, is ambulatory and steady on his feet, and is tolerating oral intake, I believe he is clinically sober. He has not developed any new pain or neurologic deficits that would be concerning for evolving injury from his fall. I believe he is appropriate for discharge at this time. Patient was given instructions on symptomatic management, follow up instructions, and return precautions for the emergency department. Patient indicated understanding and was discharged in stable condition. He ambulated steadily and independently out of the ER at the time of discharge. Critical Care <KEYANA Carroll - Last Filed: 04/10/24 20:21> Critical Care Time Critical Care Time: Yes Attestation: On 04/10/24, the high probability of a clinically significant, sudden or life threatening deterioration of the following system(s) required my full and direct attention, intervention and personal management. The time I documented below is in addition to time spent performing reported procedures but includes the following listed in this critical care notation. Total Time Total Critical Care Time: 35
--- NOTE | 2024-04-10 20:06 | CT_ITS ---
PROCEDURE INFORMATION: Exam: CT Cervical Spine Without Contrast Exam date and time: 04/10/2024 8:36 PM Age: 58 years old Clinical indication: Injury or trauma; Fall; Other: Pain; Additional info: Fall, intoxicated TECHNIQUE: Imaging protocol: Computed tomography of the cervical spine without contrast. Radiation optimization: All CT scans at this facility use at least one of these dose optimization techniques: automated exposure control; mA and/or kV adjustment per patient size (includes targeted exams where dose is matched to clinical indication); or iterative reconstruction. COMPARISON: CT HEAD/BRAIN WO CON 04/10/2024 8:32 PM FINDINGS: Bones: No acute fracture. Normal alignment. Multilevel degenerative disc and joint space changes most pronounced at C5/6 and C6/7. Vertebral body heights grossly preserved. Lungs: Unremarkable. Soft tissues: Unremarkable. IMPRESSION: No acute findings.
--- NOTE | 2024-04-10 20:06 | CT_ITS ---
PROCEDURE INFORMATION: Exam: CT Head Without Contrast Exam date and time: 04/10/2024 8:32 PM Age: 58 years old Clinical indication: Injury or trauma; Fall; Other: Pain; Additional info: Fall intoxicated TECHNIQUE: Imaging protocol: Computed tomography of the head without contrast. Radiation optimization: All CT scans at this facility use at least one of these dose optimization techniques: automated exposure control; mA and/or kV adjustment per patient size (includes targeted exams where dose is matched to clinical indication); or iterative reconstruction. COMPARISON: CT HEAD/BRAIN WO CON 06/26/2023 5:15 PM FINDINGS: Brain: Bilateral temporal lobar encephalomalacia. No hemorrhage. Underlying periventricular white matter changes. Cerebral ventricles: No ventriculomegaly. Paranasal sinuses: Visualized sinuses are unremarkable. No fluid levels. Mastoid air cells: Visualized mastoid air cells are well aerated. Bones: Unremarkable. No acute fracture. Soft tissues: Unremarkable. IMPRESSION: No acute intracranial findings identified.
[2024-04-10 20:30] LABS: Basophils # 0.1 K/mm3 (0-0.2); Basophils % 0.7 % (0.1-2.0); Eosinophils # 0.4 K/mm3 (0.0-0.4); Eosinophils % 5.9 % (0.1-12.0); Hematocrit 44.9 % (42.0-52.0); Hemoglobin 15.4 g/dL (14.1-18.0); Lymphocytes # 2.7 K/mm3 (0.7-4.5); Lymphocytes % 35.6 % (10-50); Mean Corpuscular HGB Conc 34.3 g/dL (31.8-35.4); Mean Corpuscular Hemoglobin 29.7 pg (27.0-31.2); Mean Corpuscular Volume 86.7 fl (80-94); Mean Platelet Volume 10.9 fl (7.4-10.4); Monocytes # 0.4 K/mm3 (0.1-1.0); Monocytes % 5.7 % (1.7-9.3); Neutrophils # 3.9 K/mm3 (1.8-7.8); Neutrophils % 51.8 % (37.0-80.0); Platelet Count 213 K/mm3 (142-424); Red Blood Count 5.18 M/mm3 (4.60-6.20); Red Cell Distribution Width 12.9 % (11.5-17.5); White Blood Count 7.5 K/mm3 (4.8-10.8)
[2024-04-10 20:35] LABS: Albumin Level 4.2 g/dl (3.5-5.0); Chloride 104 mmol/L (98-107); Potassium 4.3 mmoL/L (3.5-5.1); Sodium 136 mmol/L (136-145)
[2024-04-10 20:36] LABS: INR 0.88 (0.9-1.1); Prothrombin Time 9.8 seconds (9.2-12.1)
[2024-04-10 20:37] LABS: Blood Urea Nitrogen 17 mg/dl (9-20); Creatinine Clearance Estimated 121 mL/min (50-200); Estimated Glomerular Filt Rate 87 ml/min (>60); GFR (African American) 105 ML/MIN (>60)
[2024-04-10 20:38] LABS: Alanine Aminotransferase 34 U/L (12-78); Albumin/Globulin Ratio 1.5 (1.1-1.8); Alkaline Phosphatase 69 U/L (38-126); Anion Gap 11.3 mEq/L (5-15); Aspartate Amino Transferase 41 U/L (17-59); Bilirubin,Total 0.3 mg/dl (0.2-1.3); Calcium 9.1 mg/dl (8.4-10.2); Carbon Dioxide 25 mmol/L (22.0-30.0); Globulin 2.8 g/dL (1.3-3.2); Glucose 94 mg/dl (74-100); Magnesium 2.2 mg/dl (1.6-2.3)
[2024-04-10 20:49] LABS: Ethyl Alcohol 264 mg/dl (0-10)
[2024-04-10 21:00] VITALS: BP 99/57; O2SAT 95
[2024-04-10 21:30] LABS: HIV Combo NEGATIVE (Negative)
[2024-04-10 21:38] LABS: Hepatitis C Ab Qual. W/ RFX NEGATIVE (Negative)
[2024-04-10 21:57] VITALS: BP 99/57; RESP 18
--- NOTE | 2024-04-10 22:30 | PC.NURSE ---
rounded on pt at this time. pt is laying in bed. Upon entering pts room, pts IV was laying in the floor, catheter intact, and pt had blood on him. Pt cleaned up.
[2024-04-10 23:30] VITALS: RESP 16
--- NOTE | 2024-04-10 23:51 | PC.NURSE ---
Pt is uncooperative with nursing staff. Pt has removed BP cuff and pulse ox. At this time pt is resting so vitals will not be obtained.
[2024-04-11 00:56] VITALS: BP 148/77; PULSE 72; RESP 18; TEMP 36.6; O2SAT 94
== END 2024-04-11 01:03 | disposition home or self-care (01) ==
PROVIDERS: Physician Assistant; Emergency Provider Student in an Organized Health Care Education/Training Program; PCP Nurse Practitioner Acute Care
DX: S09.90XA Unspecified injury of head, initial encounter (principal); S16.1XXA Strain of muscle, fascia and tendon at neck level, initial encounter; F10.929 Alcohol use, unspecified with intoxication, unspecified; W01.198A Fall on same level from slipping, tripping and stumbling with subsequent striking against other object, initial encounter; Y93.89 Activity, other specified; Y92.89 Other specified places as the place of occurrence of the external cause; Y90.8 Blood alcohol level of 240 mg/100 ml or more
CPT/HCPCS: 70450; 72125; 80053; 80320; 83735; 85025; 85610; 86803; 87389; 99284; G0480